=== PATIENT | female | born 1985 | race Hispanic/Latino ===

== ENCOUNTER → 2016-10-22 | Outpatient (REF) | payer OTHER | LOC: M SFHCLERA 11:26 | PROVIDERS: ATTEND Nurse Practitioner Family | DX: J02.9 Acute pharyngitis, unspecified (principal) ==

== ENCOUNTER → 2016-12-21 | Outpatient (REF) | payer OTHER ==
[2016-12-21 11:56] LABS: ALBUMIN 4.3 GM/DL (3.2-5.2); ALBUMIN/GLOBULIN RATIO 1.34 (1.00-1.93); ALKALINE PHOSPHATASE 118 U/L (45-117); ALT/SGPT 30 U/L (12-78); ANION GAP 6 MEQ/L (8-16); AST/SGOT 14 U/L (15-37); BILIRUBIN,TOTAL 0.5 MG/DL (0.2-1.0); BLOOD UREA NITROGEN 6 MG/DL (7-18); CALCIUM LEVEL 9.1 MG/DL (8.5-10.1); CARBON DIOXIDE LEVEL 30 MEQ/L (21-32); CHLORIDE LEVEL 103 MEQ/L (98-107); CREATININE FOR GFR 0.74 MG/DL (0.55-1.02); GLOMERULAR FILTRATION RATE > 60.0 (>60); GLUCOSE, FASTING 210 MG/DL (70-105); POTASSIUM SERUM 4.3 MEQ/L (3.5-5.1); SODIUM LEVEL 139 MEQ/L (136-145); TOTAL PROTEIN 7.5 GM/DL (6.4-8.2)
== END ==
LOC: M SFHCLERA 09:36
PROVIDERS: ATTEND Physician Assistant
DX: E11.65 Type 2 diabetes mellitus with hyperglycemia (principal)

== ENCOUNTER 2017-04-02 12:28 | Emergency (ER) | payer MEDICAID, OTHER ==
[~2017-04-02] VITALS: Ht 162.6 cm; Wt 89.1 kg
[2017-04-02 12:29] VITALS: BP 136/70
[2017-04-02] MEDS ORDERED: METF10004 PO (12:36)
[2017-04-02] MEDS ORDERED: ZANA4TAB PO (13:15)
[2017-04-02] MEDS ORDERED: IBUP-1022 PO (13:15)
== END 2017-04-02 14:00 | disposition home or self-care (01) ==
LOC: M ED 12:28
DX: M54.5 Low back pain (principal); X50.9XXA Other and unspecified overexertion or strenuous movements or postures, initial encounter; Y92.89 Other specified places as the place of occurrence of the external cause; Y93.89 Activity, other specified; Y99.8 Other external cause status; Z88.0 Allergy status to penicillin; Z91.09 Other allergy status, other than to drugs and biological substances; Z79.84 Long term (current) use of oral hypoglycemic drugs

== ENCOUNTER → 2017-04-04 | Outpatient (CLI) | payer MEDICAID ==
[~2017-04-04] MED LIST: IBUP-1022 PO; METF10004 PO; ZANA4TAB PO
--- NOTE | 2017-04-04 12:21 | REP ---
LUMBAR SPINE, FIVE VIEWS: HISTORY: Back pain. There is no acute fracture or subluxation. The L3-4 and L4-5 intervertebral discs are decreased in height consistent with disc degeneration. The facet joints are normal. In appearance. There is spina bifida occulta of S1. IMPRESSION: Degenerative change as described above. Signed by Abhay Landrum MD 04/04/2017 12:38 P
== END ==
LOC: M LRY 10:50
PROVIDERS: ATTEND Family Medicine
DX: M51.36 Other intervertebral disc degeneration, lumbar region (principal); Q76.0 Spina bifida occulta

== ENCOUNTER → 2018-01-21 | Outpatient (REF) | payer MEDICAID | LOC: M SFHCLERA 20:50 | DX: J02.9 Acute pharyngitis, unspecified (principal) ==

== ENCOUNTER 2018-01-23 13:23 | Emergency (ER) | payer MEDICAID ==
[2018-01-23] MEDS: dexameTHASONE 4 MG/ML 1ML VIAL (J1100) PO (14:18)
== END 2018-01-23 14:22 | disposition home or self-care (01) ==
LOC: M ED 13:23
DX: J06.9 Acute upper respiratory infection, unspecified (principal); B34.9 Viral infection, unspecified; E11.9 Type 2 diabetes mellitus without complications; Z79.84 Long term (current) use of oral hypoglycemic drugs; Z88.0 Allergy status to penicillin; Z91.048 Other nonmedicinal substance allergy status
CPT/HCPCS: J1100

== ENCOUNTER 2019-06-27 19:05 | Emergency (ER) | payer MEDICAID, OTHER ==
[~2019-06-27] VITALS: Ht 162.6 cm; Wt 81.8 kg
[~2019-06-27 19:05] MED LIST changes: +FAMO20TA PO; +HYDR1CRE93 TOP; +SUDATAB18 PO
[2019-06-27 19:47] LABS: BASO % 0.4 % (0.0-1.0); EOS % 0.5 % (0.0-3.0); HEMATOCRIT 40.5 % (36.0-47.0); HEMOGLOBIN 13.9 g/dl (12.0-15.5); LYMPH # 3.2 10^3/uL (1.5-5.0); MEAN CORPUSCULAR HEMOGLOBIN 32.4 pg (27.0-33.0); MEAN CORPUSCULAR HGB CONC 34.3 g/dl (32.0-36.5); MEAN CORPUSCULAR VOLUME 94.4 fl (80.0-96.0); MONO # 0.5 10^3/uL (0.0-0.8); MONO % 5.8 % (0.0-5.0); NEUTROPHILS # 4.6 10^3/uL (1.5-8.5); NEUTROPHILS % 55.2 % (36.0-66.0); PLATELET COUNT, AUTOMATED 303 10^3/uL (150-450); RED BLOOD COUNT 4.29 10^6/uL (4.00-5.40); WHITE BLOOD COUNT 8.3 10^3/uL (4.0-10.0)
[2019-06-27 20:03] LABS: ALBUMIN 4.2 GM/DL (3.2-5.2); ALT/SGPT 20 U/L (12-78); BILIRUBIN,DIRECT 0.1 MG/DL (0.0-0.2); BILIRUBIN,TOTAL 0.4 MG/DL (0.2-1.0); BLOOD UREA NITROGEN 13 MG/DL (7-18); CALCIUM LEVEL 9.8 MG/DL (8.5-10.1); CARBON DIOXIDE LEVEL 26 MEQ/L (21-32); CHLORIDE LEVEL 101 MEQ/L (98-107); CREATININE FOR GFR 0.98 MG/DL (0.55-1.30); GLOMERULAR FILTRATION RATE > 60.0 (>60); GLUCOSE, FASTING 332 MG/DL (70-100); LIPASE 162 U/L (73-393); POTASSIUM SERUM 3.7 MEQ/L (3.5-5.1); SODIUM LEVEL 135 MEQ/L (136-145); TOTAL PROTEIN 7.9 GM/DL (6.4-8.2)
[2019-06-27 20:17] LABS: HCG, SERUM QUALITATIVE POSITIVE (NEGATIVE)
[2019-06-27] MEDS ORDERED: NS 1,000 ML IV ONE (20:30)
--- NOTE | 2019-06-27 21:29 | REPVR ---
PROCEDURE INFORMATION: Exam: US First Trimester, Transabdominal and US , Transvaginal Exam date and time: 06/27/2019 8:39 PM Clinical history: 33 years old, female; complicated by abdominal or pelvic pain; Right lower quadrant; First trimester; Gestational age or lmp: 05/31/19; ; Additional info: Right pelvic pain, lmp 05/31/19 TECHNIQUE: Imaging protocol: Real-time transabdominal obstetrical ultrasound of the maternal pelvis and a first trimester , less than 14 weeks 0 days, with image documentation. Transvaginal imaging was used for better evaluation of the fetus and adnexa. COMPARISON: CT ABD PELVIS W/O CONTRAST 07/04/2015 9:49 AM FINDINGS: MATERNAL: Uterus: Transabdominally the uterus measures at least 7.8 x 4.4 x 5.3 cm. the endometrial stripe is not well seen Endovaginally the uterus measures 9.9 x 5.1 x 6.4 cm. The endometrial stripe measures 1.2 cm in thickness. Cervix: Unremarkable. Right adnexa: Transabdominally, the right ovary is not seen as a separate structure. Endovaginally, the right ovary measures 3 x 2.9 x 2.4 cm. A complex follicle in the right ovary measures 2.5 cm in maximum diameter and demonstrates blood flow within its periphery. Findings suggest a corpus luteum cyst. Arterial blood flow demonstrated in the right ovary on color Doppler examination. Left adnexa: Transabdominally, but left ovary is not seen as a separate structure. Endovaginally, of the left ovary measures 1.5 x 1.2 x 1.9 cm. Subcentimeter follicles are present. Arterial Blood flow demonstrated in the left ovary on color Doppler and pulsed Doppler examination. Intraperitoneal: No intraperitoneal free fluid. Maternal urinary bladder: The bladder is poorly distended for the transabdominal portion of the study. IMPRESSION: No evidence of an intrauterine . In the presence of a positive beta-hCG, differential diagnostic considerations include normal early intrauterine , ectopic or recent miscarriage. Serial beta hCG measurement and followup ultrasound should be considered Electronically signed by: Valeria Lawler On 06/27/2019 21:28:49 PM
[2019-06-27 21:42] LABS: HCG, SERUM QUANTITATIVE 113 MIU/ML
[2019-06-27] MEDS ORDERED: metFORMIN (GLUCOPHAGE) 500 MG TAB PO ONE (21:45)
[2019-06-27] MEDS ORDERED: METF500T13 PO (21:47)
[2019-06-27 22:05] VITALS: BP 133/81
== END 2019-06-27 22:06 | disposition home or self-care (01) ==
LOC: M ED 19:05
DX: O34.81 Maternal care for other abnormalities of pelvic organs, first trimester (principal); N83.201 Unspecified ovarian cyst, right side; O99.281 Endocrine, nutritional and metabolic diseases complicating pregnancy, first trimester; E86.0 Dehydration; O24.111 Pre-existing type 2 diabetes mellitus, in pregnancy, first trimester; Z79.84 Long term (current) use of oral hypoglycemic drugs; Z88.0 Allergy status to penicillin; Z91.048 Other nonmedicinal substance allergy status; Z3A.01 Less than 8 weeks gestation of pregnancy

== ENCOUNTER → 2019-06-30 | Outpatient (CLI) | payer OTHER ==
[~2019-06-30] MED LIST changes: +METF500T13 PO
== END ==
LOC: M LAB 06:27
PROVIDERS: ATTEND Physician Assistant Medical
DX: Z32.00 Encounter for pregnancy test, result unknown (principal)

== ENCOUNTER → 2019-07-07 | Outpatient (REF) | payer MEDICAID, OTHER ==
[2019-07-07 13:30] LABS: HEMOGLOBIN A1c 9.2 %
== END ==
LOC: M SFHCLERA 08:02
PROVIDERS: ATTEND Nurse Practitioner Family
DX: E11.65 Type 2 diabetes mellitus with hyperglycemia (principal)

== ENCOUNTER → 2019-08-14 | Outpatient (CLI) | payer OTHER ==
[2019-08-14 18:08] LABS: BASO % 0.2 % (0.0-1.0); EOS % 0.5 % (0.0-3.0); HEMOGLOBIN 11.7 g/dl (12.0-15.5); LYMPH # 2.7 10^3/uL (1.5-5.0); LYMPH % 32.8 % (24.0-44.0); MEAN CORPUSCULAR HGB CONC 33.4 g/dl (32.0-36.5); MEAN CORPUSCULAR VOLUME 95.6 fl (80.0-96.0); MONO # 0.5 10^3/uL (0.0-0.8); MONO % 6.4 % (0.0-5.0); NEUTROPHILS % 59.9 % (36.0-66.0); PLATELET COUNT, AUTOMATED 373 10^3/uL (150-450); RED BLOOD COUNT 3.66 10^6/uL (4.00-5.40); WHITE BLOOD COUNT 8.3 10^3/uL (4.0-10.0)
[2019-08-14 18:37] LABS: HEMOGLOBIN A1c 7.6 %
[2019-08-14 19:26] LABS: CHLAMYDIA DNA AMPLIFICATION POSITIVE (NEGATIVE); GC DNA AMPLIFICATION NEGATIVE (NEGATIVE)
[2019-08-17 14:25] LABS: HIV 1&2 SCREEN CENTAUR NEGATIVE (NEGATIVE); RUBELLA IgG QUALITATIVE IMMUNE (IMMUNE)
== END ==
LOC: M SMT 11:36
PROVIDERS: ATTEND Specialist
DX: Z36.89 Encounter for other specified antenatal screening (principal); O09.891 Supervision of other high risk pregnancies, first trimester; O24.011 Pre-existing type 1 diabetes mellitus, in pregnancy, first trimester; Z3A.00 Weeks of gestation of pregnancy not specified

== ENCOUNTER → 2019-09-18 | Outpatient (CLI) | payer MEDICAID | LOC: M WHC 14:15 | PROVIDERS: ATTEND Obstetrics & Gynecology | DX: Z53.9 Procedure and treatment not carried out, unspecified reason (principal) ==

== ENCOUNTER → 2019-09-18 | Outpatient (REF) | payer MEDICAID ==
[2019-09-21 11:57] LABS: CHLAMYDIA DNA AMPLIFICATION NEGATIVE (NEGATIVE); GC DNA AMPLIFICATION NEGATIVE (NEGATIVE)
== END ==
LOC: M LAB REF 14:15
PROVIDERS: ATTEND Obstetrics & Gynecology
DX: O24.012 Pre-existing type 1 diabetes mellitus, in pregnancy, second trimester (principal)

== ENCOUNTER → 2019-10-06 | Outpatient (CLI) | payer MEDICAID, OTHER ==
--- NOTE | 2019-10-06 19:17 | REP ---
Clinical: Anatomical evaluation. Comparison: 06/27/2019 . Findings: Examination demonstrates a single live intrauterine in variable presentation. motion is identified by technologist. Placenta is noted posterior and grade zero without evidence for placenta previa or abruption. Amniotic fluid volume is normal. Cervix measures 3.5 cm in length and appears closed. No evidence for nuchal cord. Gestational age by LMP 18 weeks 2 days with KIKE 03/06/2020 . Gestational age by current measurements 18 weeks 5 days with KIKE 03/03/2020 . FHR equals 144 beats per minute. BPD 4.3 cm 19 weeks 1 day HC 15.7 cm 18 weeks 4 days AC 14.2 cm 19 weeks 4 days FL 2.8 cm 18 weeks 4 days HL 2.8 cm 19 weeks 1 day HC/AC ratio 1.10 Estimated weight 271 grams ( 76th percentile). Anatomical assessment demonstrates normal structures including cranium, choroid plexus, cavum, cerebellum/posterior fossa, facial features, lungs, four-chamber heart/ventricular outflow tracts, diaphragm, stomach, cord insertion/three-vessel cord, kidneys/bladder, spine, and extremities. Impression: Single live intrauterine in variable presentation demonstrating appropriate interval growth. Anatomical assessment is complete and normal. No gross abnormalities are identified. Electronically Signed by Omid Ramirez MD 10/06/2019 07:08 P
== END ==
LOC: M RAD 10:11
PROVIDERS: ATTEND Obstetrics & Gynecology
DX: O24.012 Pre-existing type 1 diabetes mellitus, in pregnancy, second trimester (principal)

== ENCOUNTER → 2019-11-02 | Outpatient (REF) | payer MEDICAID, OTHER | LOC: M SFHCLERA 20:23 | PROVIDERS: ATTEND Nurse Practitioner Family | DX: R53.81 Other malaise (principal) ==

== ENCOUNTER → 2019-12-09 | Outpatient (REF) | payer OTHER, MEDICAID ==
[2019-12-09 14:21] LABS: HEMATOCRIT 35.4 % (36.0-47.0); MEAN CORPUSCULAR HEMOGLOBIN 31.3 pg (27.0-33.0); MEAN CORPUSCULAR HGB CONC 33.9 g/dl (32.0-36.5); MEAN CORPUSCULAR VOLUME 92.2 fl (80.0-96.0); PLATELET COUNT, AUTOMATED 338 10^3/uL (150-450); RED BLOOD COUNT 3.84 10^6/uL (4.00-5.40); WHITE BLOOD COUNT 9.4 10^3/uL (4.0-10.0)
== END ==
LOC: M LABDRAW1 11:19
PROVIDERS: ATTEND Specialist
DX: Z34.82 Encounter for supervision of other normal pregnancy, second trimester (principal)

== ENCOUNTER 2019-12-14 13:35 | Outpatient (CLI) | payer OTHER, MEDICAID ==
[~2019-12-14] VITALS: Ht 162.6 cm; Wt 93.6 kg
[2019-12-14 13:58] VITALS: BP 113/68
[2019-12-14] MEDS ORDERED: METF500T13 PO (14:09)
[2019-12-14] MEDS ORDERED: regular insulin SUBQ (14:09)
[2019-12-14] MEDS ORDERED: nph insulin SUBQ ×2 (14:09)
[2019-12-14 14:11] VITALS: BP 113/68
[2019-12-14] MEDS ORDERED: HumuLIN R (REGULAR) INSULIN (NovoLIN R) **100U/ML** PER UNIT SC ONE (15:30)
[2019-12-14] MEDS ORDERED: HumuLIN N INSULIN (NovoLIN N) PER UNIT SC ONE (15:30)
[2019-12-14 15:49] VITALS: BP 141/94
[2019-12-14 16:11] LABS: APPEARANCE, URINE CLEAR (CLEAR); BACTERIA, URINE AUTO NEGATIVE (NEGATIVE); BILIRUBIN, URINE AUTO NEGATIVE (NEGATIVE); BLOOD, URINE BLOOD NEGATIVE (NEGATIVE); COLOR, URINE YELLOW (YELLOW); GLUCOSE, URINE (UA) AUTO 3+ mg/dL (NEGATIVE); KETONE, URINE AUTO 2+ mg/dL (NEGATIVE); LEUKOCYTE ESTERASE, URINE AUTO NEGATIVE (NEGATIVE); MUCUS, URINE SMALL (NEGATIVE); NITRITE, URINE AUTO NEGATIVE (NEGATIVE); PROTEIN, URINE AUTO NEGATIVE (NEGATIVE); RBC, URINE AUTO 1 /HPF (0-3); SPECIFIC GRAVITY URINE AUTO 1.041 (1.002-1.035); SQUAMOUS EPITHELIAL CELL UR AU 2 /HPF (0-6); UROBILINOGEN, URINE AUTO 0.2 mg/dL (0.0-2.0); WBC, URINE AUTO 2 /HPF (0-3)
[2019-12-14 17:55] VITALS: BP 133/83
[2019-12-14 18:49] LABS: CREATININE,RANDOM URINE 96.9 MG/DL; TOTAL PROTEIN,RANDOM URINE 11.5 MG/DL (0.0-12.0)
[2019-12-14 18:53] LABS: HEMOGLOBIN 11.8 g/dl (12.0-15.5); MEAN CORPUSCULAR HEMOGLOBIN 32.4 pg (27.0-33.0); MEAN CORPUSCULAR HGB CONC 34.7 g/dl (32.0-36.5); MEAN CORPUSCULAR VOLUME 93.4 fl (80.0-96.0); PLATELET COUNT, AUTOMATED 304 10^3/uL (150-450); RED BLOOD COUNT 3.64 10^6/uL (4.00-5.40); WHITE BLOOD COUNT 10.6 10^3/uL (4.0-10.0)
[2019-12-14 19:13] LABS: ALT/SGPT 11 U/L (12-78); BILIRUBIN,TOTAL 0.2 MG/DL (0.2-1.0); CREATININE FOR GFR 0.65 MG/DL (0.55-1.30); GLOMERULAR FILTRATION RATE > 60.0 (>60); LDH LACTATE DEHYDROGENASE 139 U/L (84-246); URIC ACID 2.9 MG/DL (2.6-6.0)
[2019-12-14 19:40] VITALS: BP 133/88
--- NOTE | 2019-12-14 21:26 | IPNPDOC ---
Text Note Date of Service The patient was seen on 12/14/19. NOTE Subjective: Patient is a 34-year-old female who is a who is 28.1 weeks gestation with an KIKE of 03/06/20 who presents to L&D with complaints of cramping, pelvic pressure, and some contractions that have been occurring since Saturday. The patient initiated care in her first trimester with [facility] and her has been complicated by AMA and type II diabetes. She reports she has not taken any insulin since Saturday. she states she has been staying with her mother and left her insulin at home. She reports urinary frequency also. She reports that her cramping hasn't gotten worse and her contractions she feels haven't gotten closer together since she has been in the hospital. Current medications: regular insulin, NPH insulin, PNV Allergies: wool, PCN Past pregnancies: 1. 2003 SAB 2. 2007: at 38 weeks of a living male weighting 6 lbs 5 o with no complicat ions 3. 2008 SAB Medical history: obesity, Type II diabetes Surgical history: left eye and lumpectomy on her right breast Family history: father: diabetes, hyperlipidemia; sister: hyperlipidemia; m aternal grandmother: HTN, stroke, diabetes; Maternal grandfather: HTN and AAA; Paternal grandmother: ND and HTN Social history: single, unemployed, non smoker, denies drug use or alcohol abuse. Objective: VS and labs: see below. FHR 150, moderate variability, positive accelerations, no decelerations. Contractions: occasional. A+O x 3; Respiratory rate is regular with no use of accessory muscles; abdomen gravid and soft to palpation; SVE: FT/50/-3, anterior, soft. After 4 hours there had been no change but a scant of pink noted on glove after cervical exam. Assessment: IUP at 28.1 weeks gestation, cramping, Category I FHR for gestational age, not in labor Plan: After consulting with Dr. Casillas the plan was to give the patient her appropriate evening insulin earlier after patient was able to eat. Reviewed all labs with patient and her mother and no change is . She has an appointment this week for routine OB care. She was discharged home with her mother with labor precautions. Patient instructed and educated on the importance of taking her insulin and the effects it can have on her and the baby. Patient denies needing a refill on her medication. Reviewed acces to care, kick count, labor signs, preeclamptic symptoms, abruption symptoms and danger signs to report. VS,Fishbone, I+O VS, Fishbone, I+O Laboratory Tests 12/14/19 18:32 Item Value Date Time Creatinine 0.65 MG/DL 12/14/19 1832 Glomerular Filtration Rate > 60.0 12/14/19 1832 Uric Acid 2.9 MG/DL 12/14/19 1832 Total Bilirubin 0.2 MG/DL 12/14/19 1832 Aspartate Amino Transf (AST/SGOT) 10 U/L 12/14/19 1832 Alanine Aminotransferase (ALT/SGPT) 11 U/L L 12/14/19 1832 Lactate Dehydrogenase 139 U/L 12/14/19 1832 Item Value Date Time Urine Color YELLOW 12/14/19 1544 Urine Appearance CLEAR 12/14/19 1544 Urine pH 5.0 UNITS 12/14/19 1544 Urine Specific [place] 1.041 12/14/19 1544 Urine Protein NEGATIVE mg/dL 12/14/19 1544 Urine Glucose (Auto)(UA) 3+ mg/dL H 12/14/19 1544 Urine Ketones (Auto) 2+ mg/dL H 12/14/19 1544 Urine Blood NEGATIVE 12/14/19 1544 Urine Nitrite NEGATIVE 12/14/19 1544 Urine Bilirubin NEGATIVE 12/14/19 1544 Urine Urobilinogen 0.2 mg/dL 12/14/19 1544 Urine Leukocyte Esterase (Auto) NEGATIVE 12/14/19 1544 Urine WBC (Auto) 2 /HPF 12/14/19 1544 Urine RBC (Auto) 1 /HPF 12/14/19 1544 Urine Hyaline Casts (Auto) 0 /LPF 12/14/19 1544 Urine Bacteria (Auto) NEGATIVE 12/14/19 1544 Urine Squamous Epithelial Cells 2 /HPF 12/14/19 1544 Urine Mucus (Auto) SMALL 12/14/19 1544 Item Value Date Time Urine Random Total Protein 11.5 MG/DL 12/14/19 1544 Urine Random Creatinine 96.9 MG/DL 12/14/19 1544 Item Value Date Time Bedside Glucose (Misc Panel) 205 MG/DL H 12/14/19 1429 Bedside Glucose (Misc Panel) 228 MG/DL H 12/14/19 1840 Bedside Glucose (Misc Panel) 167 MG/DL H 12/14/19 1939 Vital Signs Date Time Temp Pulse Resp B/P (MAP) Pulse Ox O2 Delivery O2 Flow Rate FiO2 12/14/19 19:40 103 133/88 (103) 12/14/19 15:49 98.2 18 12/14/19 14:11 Room Air Vital Signs Label Value Date Time Patient Temperature 98.2 degrees F 12/14/19 1411 Temperature Source Temporal 12/14/19 1411 Pulse 114 12/14/19 1411 Respiratory Rate 18 bpm 12/14/19 1411 Blood Pressure Assessment 113/68 (83) 12/14/19 1411 Source Automatic Cuff (NIBP) Vital Signs Label Value Date Time Patient Temperature 98.2 degrees F 12/14/19 1549 Pulse 115 12/14/19 1549 Pulse 115 12/14/19 1549 Respiratory Rate 18 bpm 12/14/19 1549 Blood Pressure Assessment 141/94 (110) 12/14/19 1549 Source Automatic Cuff (NIBP) Blood Pressure Assessment 141/94 (110) 12/14/19 1549 Source Automatic Cuff (NIBP) KEV JOHNSON CNM Dec 14, 2019 21:25
== END 2019-12-14 19:50 | disposition home or self-care (01) ==
LOC: M LDO 13:35
PROVIDERS: ATTEND Advanced Practice Midwife
DX: O26.893 Other specified pregnancy related conditions, third trimester (principal); Z3A.28 28 weeks gestation of pregnancy; O24.414 Gestational diabetes mellitus in pregnancy, insulin controlled

== ENCOUNTER → 2019-12-30 | Outpatient (CLI) | payer MEDICAID, OTHER ==
[~2019-12-30] MED LIST changes: +nph insulin SUBQ; +regular insulin SUBQ
--- NOTE | 2019-12-30 11:55 | REP ---
OB ULTRASOUND: Real-time sonographic evaluation of the gravid uterus is performed. There is a single living intrauterine gestation. The estimated gestational age is 30 weeks 3 days, EDC 03/06/2020. Today's measurements indicate appropriate growth. BPD 78 mm = 31 weeks 3 days, 64th percentile HC 286 mm = 31 weeks 3 days, 64th percentile AC 263 mm = 30 weeks 3 days, 49th percentile Femur length 59 mm = 30 weeks 5 days, 53rd percentile HC/AC ratio 1.09 within normal range. Estimated weight 1614 grams, 47th percentile. Cervix is closed and measures 3.3 cm in length. heart rate 134 beats per minute. Amniotic fluid within normal limits. SUJATA 18.3, normal range 8.9-23.6. position is vertex. Placenta posterior and grade 1 with no previa or abruption.
== END ==
LOC: M WHC 10:39
PROVIDERS: ATTEND Specialist
DX: O24.013 Pre-existing type 1 diabetes mellitus, in pregnancy, third trimester (principal)

== ENCOUNTER 2020-02-03 22:06 | Outpatient (CLI) | payer OTHER ==
[~2020-02-03] VITALS: Ht 162.6 cm; Wt 102.7 kg
[~2020-02-03 22:06] MED LIST changes: -INSURSD SC; -NOVOINJ12 SC; -NOVOINJ13 SC
[2020-02-03] MEDS ORDERED: INSURSD SC (22:35)
[2020-02-03] MEDS ORDERED: NOVOINJ12 SC (22:36)
[2020-02-03] MEDS ORDERED: NOVOINJ13 SC ×2 (22:37→22:38)
--- NOTE | 2020-02-04 06:48 | IPN ---
DATE: 02/03/2020 Sheryl is a 34-year-old, 4, para 1-0-2-1 at 35-3/7 weeks gestation, estimated date of confinement (EDC) of 03/06/2020 based on last menstrual period and confirmed by first trimester ultrasound. She presents to labor and delivery today with report of contractions every 3-5 minutes all day long. She denies leakage of fluid or vaginal bleeding. The fetus has been active. Her care was initiated at [facility] in the first trimester. course complicated by uncontrolled type 2 diabetes mellitus with hyperglycemia. She has an induction scheduled 02/14/2020 and advanced maternal age. OBSTETRIC HISTORY: Spontaneous miscarriage times two. In 2007, 38 weeks, 6-pound 5-ounce male, spontaneous vaginal delivery following induction of labor for gestational hypertension. PAST MEDICAL HISTORY: History of gestational diabetes and type 2 diabetes. History of grand mal seizures. SURGERIES: Left eye surgery, lumpectomy of the right breast. FAMILY HISTORY: Myocardial infarction, hypertension, abdominal aortic aneurysm (AAA), stroke, diabetes, hyperlipidemia. SOCIAL HISTORY: The patient is . She is a nonsmoker. Denies alcohol and drug use. Denies history of any sexually transmitted infections. She denies history of abuse, physical, sexual, and emotional. ALLERGIES: PENICILLIN, wool, beestings, caterpillars. OBJECTIVE: Temperature 97.1, pulse 118, blood pressure is 119/77. She is alert and oriented times three. She does not appear uncomfortable with her contractions. heart rate is 145 with moderate variability, positive accelerations, negative decelerations. Contractions are every 5 minutes. They are mild to palpation, lasting approximately 30 seconds. Sterile vaginal exam: 1 cm dilated, 50% effaced, -3 station, posterior, moderate texture. No show with the exam. ASSESSMENT: Intrauterine at 35-3/7 weeks, heart rate category 1, not in active labor. PLAN: Discharge the patient home. I did review signs and symptoms of active labor, kick counts, and access to care. Patient has had her questions answered and is agreeable to this plan of care. She is scheduled on Saturday for a vitamin. Was instructed to keep her current appointment.
== END 2020-02-03 23:31 | disposition home or self-care (01) ==
LOC: M LDO 22:06
PROVIDERS: ATTEND Advanced Practice Midwife
DX: O26.893 Other specified pregnancy related conditions, third trimester (principal); R10.30 Lower abdominal pain, unspecified; O47.03 False labor before 37 completed weeks of gestation, third trimester; Z3A.35 35 weeks gestation of pregnancy; Z88.0 Allergy status to penicillin; Z91.048 Other nonmedicinal substance allergy status; Z91.030 Bee allergy status

== ENCOUNTER → 2020-02-03 | Outpatient (CLI) | payer OTHER ==
[~2020-02-03] MED LIST changes: +INSURSD SC; +NOVOINJ12 SC; +NOVOINJ13 SC
--- NOTE | 2020-02-04 03:32 | REP ---
Clinical: Gestational diabetes. Comparison: 12/30/2019 Findings: Examination demonstrates a single live intrauterine in cephalic presentation. motion is identified by technologist. Placenta is noted posterior and grade I without evidence for placenta previa or abruption. Amniotic fluid volume is normal. Cervix measures 3.8 cm in length and appears closed. No evidence for nuchal cord. Gestational age by LMP 35 weeks 3 days with KIKE 03/06/2020 . Gestational age by current measurements 35 weeks 1 day with KIKE 03/08/2020 . FHR equals 158 beats per minute. Amniotic fluid index: 16.7 cm Estimated weight by current biometrical measurements 1825 grams ( 60th percentile). Impression: Single live advanced gestation in cephalic presentation demonstrating appropriate interval growth. No gross abnormalities are identified.
== END ==
LOC: M WHC 13:51
PROVIDERS: ATTEND Obstetrics & Gynecology
DX: O24.113 Pre-existing type 2 diabetes mellitus, in pregnancy, third trimester (principal); Z3A.35 35 weeks gestation of pregnancy

== ENCOUNTER → 2020-02-08 | Outpatient (REF) | payer MEDICAID, OTHER ==
[~2020-02-08] MED LIST changes: +INSUN SC; +INSUR SC; +INSURSD SC; +NOVOINJ12 SC; +NOVOINJ13 SC
== END ==
LOC: M SFHCWAGY 17:09
PROVIDERS: ATTEND Obstetrics & Gynecology
DX: O24.113 Pre-existing type 2 diabetes mellitus, in pregnancy, third trimester (principal); Z36.89 Encounter for other specified antenatal screening; Z3A.00 Weeks of gestation of pregnancy not specified

== ENCOUNTER 2020-02-14 08:43 | Inpatient (IN) | payer OTHER ==
[~2020-02-14] VITALS: Ht 162.6 cm; Wt 101.8 kg
[2020-02-14] VITALS (24 sets, daily range): BP systolic 106–138; BP diastolic 62–88
[~2020-02-14 08:43] MED LIST changes: -INSUN SC; -INSUR SC
[2020-02-14] MEDS ORDERED: INSUN SC ×2 (09:04→09:06)
[2020-02-14] MEDS ORDERED: INSUR SC (09:07)
[2020-02-14 09:48] LABS: HEMATOCRIT 35.6 % (36.0-47.0); MEAN CORPUSCULAR HEMOGLOBIN 30.8 pg (27.0-33.0); MEAN CORPUSCULAR HGB CONC 33.7 g/dl (32.0-36.5); MEAN CORPUSCULAR VOLUME 91.3 fl (80.0-96.0); PLATELET COUNT, AUTOMATED 362 10^3/uL (150-450)
[2020-02-14] MEDS ORDERED: NS 1,000 ML IV SCH ×3 (09:50→16:00)
[2020-02-14] MEDS ORDERED: INSULIN HUMAN REGULAR 100 UNITS in NS 99 ML IV SCH (09:50)
[2020-02-14] MEDS ORDERED: INSULIN IV RATE CHANGE DOCUMENTATION ML/HR XX SCH (10:00)
[2020-02-14] MEDS: VANCOMYCIN HCL 1,000 MG, VIAL MATE ADAPTER 1 EACH in D5W 250 ML IV SCH ×2 (10:19→22:20)
[2020-02-14] MEDS ORDERED: OXYTOCIN DRIP 30 UNITS in IV 1 EA IV SCH (10:30)
[2020-02-14] MEDS ORDERED: D5W/0.9% SODIUM CHLORIDE 1,000 ML IV SCH (13:30)
[2020-02-14] MEDS: D5W/0.9% SODIUM CHLORIDE 1,000 ML IV SCH ×2 (14:15→19:34)
[2020-02-14] MEDS ORDERED: NS 500 ML IV ONE ×2 (20:15→21:45)
[2020-02-14] MEDS ORDERED: ACETAMINOPHEN 500 MG TAB As Ordered ONE (21:28)
[2020-02-14] MEDS ORDERED: ACETAMINOPHEN 500 MG TAB PO PRN (21:30)
[2020-02-14] MEDS ORDERED: BUTORPHANOL 2 MG/ML INJ (J0595) IV ONE (23:30)
[2020-02-14] MEDS ORDERED: PROMETHAZINE INJ 25 MG/ML VIAL (J2550) IV ONE (23:30)
[2020-02-15] VITALS (11 sets, daily range): BP systolic 103–123; BP diastolic 55–69
[2020-02-15] MEDS ORDERED: LR 1,000 ML IV SCH (01:11)
[2020-02-15] MEDS ORDERED: OXYTOCIN DRIP 30 UNITS in IV 1 EA IV SCH (01:11)
[2020-02-15] MEDS ORDERED: DIBUCAINE 1% OINTMENT 30GM TOP PRN (01:15)
[2020-02-15] MEDS ORDERED: DOCUSATE SODIUM 100MG CAPSULE PO PRN (01:15)
[2020-02-15] MEDS ORDERED: RHOGAM 300 MCG (1500 IU) INJ (J2790) IM SCH (01:15)
[2020-02-15] MEDS ORDERED: IBUPROFEN 800 MG TAB PO PRN (01:15)
[2020-02-15] MEDS ORDERED: ACETAMINOPHEN TAB 650MG DOSE (2X325MG) PO PRN (01:15)
[2020-02-15] MEDS ORDERED: ACETAMINOPHEN 500 MG TAB PO PRN (01:15)
[2020-02-15] MEDS ORDERED: ONDANSETRON 4MG/2ML VIAL IV PRN (01:15)
[2020-02-15] MEDS ORDERED: IBUPROFEN 600MG TAB PO PRN (01:15)
[2020-02-15] MEDS ORDERED: PROMETHAZINE 25 MG TAB PO PRN (01:15)
[2020-02-15] MEDS ORDERED: MEASLES,MUMPS,RUBELLA VACCINE INJ (MMR-II) (90707) SC SCH (01:15)
[2020-02-15] MEDS ORDERED: LIDOCAINE 1% MDV 20ML VIAL INFIL ONE (01:30)
[2020-02-15] MEDS: PRENATAL VITAMINS CHEWABLE TABLET PO SCH (08:03)
[2020-02-15] MEDS: metFORMIN (GLUCOPHAGE) 500MG TAB PO SCH ×2 (08:15→17:55)
[2020-02-16 06:08] VITALS: BP 124/58
[2020-02-16] MEDS: metFORMIN (GLUCOPHAGE) 500MG TAB PO SCH ×2 (07:46→17:46)
[2020-02-16] MEDS: PRENATAL VITAMINS CHEWABLE TABLET PO SCH (07:47)
[2020-02-16] MEDS ORDERED: INFLUENZA QUADRIVALENT PF VACCINE 0.5ML SYRINGE IM ONE (09:00)
[2020-02-16] MEDS ORDERED: BOOSTRIX/ADACEL VACCINE (DIPHTH/PERTUSS/ACELL/TETANUS) 0.5ML SYR IM ONE (09:00)
--- NOTE | 2020-02-16 13:51 | IPNPDOC ---
Progress Note Date of Service: February 16, 2020 Day#: 1 Progress Note SUBJECT: Patient is a 34-year-old female who is now a who presented to L&D at 37 weeks gestation due to her being a poorly controlled pre-gestational diabetic. She had an uncomplicated vaginal delivery on 02/15/20 at 0051. She reports she is ambulating and voiding without difficulty. States her pain is being managed with Motrin and Tylenol. OBJECTIVE: VITAL SIGNS: Within normal limits, afebrile. Blood sugars are in normal ranges. Alert and oriented times three. Breath sounds clear to auscultation. Heart rate: Regular rate and rhythm, no murmurs, rubs or gallops. Abdomen: Fundus firm at U-2. Soft, NTTP. Minimal lochia. ASSESSMENT: Day 1 ; poorly controlled pre-gestational diabetes, AMA PLAN: 1. Continue with supportive nursing care. 2. Anticipate discharge to home tomorrow. VS, I&O, 24H, Fishbone Vital Signs/I&O Vital Signs Date Time Temp Pulse Resp B/P (MAP) Pulse Ox O2 Delivery O2 Flow Rate FiO2 02/16/20 06:08 98.9 105 18 124/58 (80) 02/15/20 06:00 96 Room Air KEV JOHNSON CNM February 16, 2020 13:51
[2020-02-16 18:18] VITALS: BP 119/75
[2020-02-17 06:24] VITALS: BP 120/74
[2020-02-17] MEDS: PRENATAL VITAMINS CHEWABLE TABLET PO SCH (08:31)
[2020-02-17] MEDS: metFORMIN (GLUCOPHAGE) 500MG TAB PO SCH (08:31)
[2020-02-17] MEDS ORDERED: INFLUENZA QUADRIVALENT PF VACCINE 0.5ML SYRINGE IM ONE (09:00)
[2020-02-17] MEDS ORDERED: BOOSTRIX/ADACEL VACCINE (DIPHTH/PERTUSS/ACELL/TETANUS) 0.5ML SYR IM ONE (09:00)
== END 2020-02-17 13:40 | disposition home or self-care (01) | DRG 560 ==
LOC: M LDI 08:43 → M OBS 02-15 03:26
PROVIDERS: ADMIT Obstetrics & Gynecology; ATTEND Obstetrics & Gynecology
PROC: 10E0XZZ Delivery of Products of Conception, External Approach (ICD-10-PCS; principal; 2020-02-15)
PROC: 0KQM0ZZ Repair Perineum Muscle, Open Approach (ICD-10-PCS; 2020-02-15)
DX: O24.424 Gestational diabetes mellitus in childbirth, insulin controlled (principal); O99.824 Streptococcus B carrier state complicating childbirth; Z37.0 Single live birth; Z3A.37 37 weeks gestation of pregnancy; O70.1 Second degree perineal laceration during delivery

== ENCOUNTER → 2020-06-16 | Outpatient (REF) | payer MEDICAID, OTHER ==
[~2020-06-16] MED LIST changes: +FLON1SPR NARES; +GNP15SYP PO; +INSUN SC; +INSUR SC
== END ==
LOC: M SFHCWAGY 13:15
PROVIDERS: ATTEND Obstetrics & Gynecology
DX: Z12.4 Encounter for screening for malignant neoplasm of cervix (principal)

== ENCOUNTER 2020-08-01 15:57 | Emergency (ER) | payer MEDICAID, OTHER ==
[~2020-08-01] VITALS: Ht 162.6 cm; Wt 88.4 kg
[~2020-08-01 15:57] MED LIST changes: -FLON1SPR NARES; -GNP15SYP PO
[2020-08-01] MEDS ORDERED: GNP15SYP PO (17:39)
[2020-08-01] MEDS ORDERED: FLON1SPR NARES (17:39)
[2020-08-01 17:48] VITALS: BP 144/85
== END 2020-08-01 17:49 | disposition home or self-care (01) ==
LOC: M ED 15:57
DX: J06.9 Acute upper respiratory infection, unspecified (principal); B34.9 Viral infection, unspecified; H65.93 Unspecified nonsuppurative otitis media, bilateral; E11.9 Type 2 diabetes mellitus without complications; Z88.0 Allergy status to penicillin; Z91.030 Bee allergy status; Z91.09 Other allergy status, other than to drugs and biological substances; Z79.84 Long term (current) use of oral hypoglycemic drugs

== ENCOUNTER 2020-09-06 15:18 | Emergency (ER) | payer OTHER ==
[~2020-09-06] VITALS: Ht 162.6 cm; Wt 87.4 kg
[~2020-09-06 15:18] MED LIST changes: +FLON1SPR NARES; +GNP15SYP PO
--- NOTE | 2020-09-06 16:03 | REP ---
INDICATION: twist/pain/swelling COMPARISON: None. TECHNIQUE: Four views right ankle performed. FINDINGS: There is no evidence of acute fracture, dislocation, or intrinsic bone disease.The ankle mortise is anatomic. IMPRESSION: No fracture or dislocation. <Electronically signed by Coleman Dumont > 09/06/20 [id number]
[2020-09-06] MEDS ORDERED: NAPROXEN 250 MG TAB PO ONE (17:00)
[2020-09-06] MEDS ORDERED: LIDOCAINE 4% CREAM 5GM (LMX4) TOP ONE (17:00)
[2020-09-06 17:37] LABS: BASO % 0.4 % (0.0-1.0); EOS % 0.5 % (0.0-3.0); HEMATOCRIT 40.8 % (36.0-47.0); HEMOGLOBIN 13.7 g/dl (12.0-15.5); LYMPH # 3.1 10^3/uL (1.5-5.0); MEAN CORPUSCULAR HEMOGLOBIN 30.9 pg (27.0-33.0); MEAN CORPUSCULAR HGB CONC 33.6 g/dl (32.0-36.5); MEAN CORPUSCULAR VOLUME 91.9 fl (80.0-96.0); MONO # 0.5 10^3/uL (0.0-0.8); MONO % 5.3 % (0.0-5.0); NEUTROPHILS # 4.8 10^3/uL (1.5-8.5); NEUTROPHILS % 56.3 % (36.0-66.0); PLATELET COUNT, AUTOMATED 301 10^3/uL (150-450); RED BLOOD COUNT 4.44 10^6/uL (4.00-5.40); WHITE BLOOD COUNT 8.4 10^3/uL (4.0-10.0)
[2020-09-06 18:00] LABS: C REACTIVE PROTEIN QUANTITATIV 1.2 MG/DL (0.00-0.30); URIC ACID 2.8 MG/DL (2.6-6.0)
[2020-09-06 18:02] LABS: ERYTHROCYTE SEDIMENTATION RATE 19 mm/hr (0-20)
[2020-09-06] MEDS ORDERED: NAPR-837 PO (18:29)
[2020-09-06 18:40] VITALS: BP 123/79
== END 2020-09-06 18:54 | disposition home or self-care (01) ==
LOC: M ED 15:18
DX: M25.571 Pain in right ankle and joints of right foot (principal); R26.2 Difficulty in walking, not elsewhere classified; E11.9 Type 2 diabetes mellitus without complications; Z88.0 Allergy status to penicillin; Z91.030 Bee allergy status; Z91.048 Other nonmedicinal substance allergy status; Z79.84 Long term (current) use of oral hypoglycemic drugs

== ENCOUNTER 2020-10-12 12:47 | Emergency (ER) | payer OTHER ==
[~2020-10-12] VITALS: Ht 162.6 cm; Wt 87.7 kg
[~2020-10-12 12:47] MED LIST changes: +NAPR-837 PO
--- OUTSIDE RECORDS SUMMARY | 2020-10-12 12:56 | CCD ---
Author Author [facility] Organization [facility] Address Unknown Phone Unavailable Care Team Providers Care Line Staker Name Role Phone Yovanny Casillas Unavailable PROBLEMS Type Condition ICD9-CM Code [id number] Code Onset Dates Condition S tatus SNOMED Code Notes Problem Other chronic sinusitis 473.8 Active 82005037 Problem Other acne 706.1 Active 24817311 Problem Headache 784.0 Active 40646681 Problem Uncontrolled type 2 diabetes mellitus with hyperglycemia E11.65 Active 221803296 Problem Diabetes type 2, uncontrolled E11.65 Active 44 8097614 Problem Type 2 diabetes mellitus with hyperglycemia E11.65 Active 398332618051766 Problem Pre-existing type 1 diabetes mellitus, in pregna moy, second trimester O24.012 Active 909923434 Problem Diabetes in O24.919 Active 93692476 Problem Pre-existing type 2 diabetes mellitus, in pregna [facility], third trimester O24.113 Active 173375393 Problem Supervision of other normal Z34.80 Ac tive 368484358 Problem Pre-existing type 2 diabetes mellitus, in , unspecified trimester O24.119 Active 75073192 Problem Advanced maternal age in multigravida O09.529 Ac tive 467042651 Problem Pre-existing type 1 diabetes mellitus, in pregna moy, third trimester O24.013 Active 342421281 Problem Insulin long-term use Z79.4 Active 583627756 Problem Pre-existing diabetes mellit us affecting in third trimester, antepartum O24.313 Active 973050343 Problem Multigravida of advanced maternal age in third trimester O09.523 Active 750768149 ALLERGIES Allergen (clinical drug ingredient) Drug/Non Drug Allergy do cumented on EMR Reaction Allergy Type Onset Date Status Penicillin (For Allergies Use Only) Rash Drug Allerg y Active caterpillars Unknown Non Drug Allergy 08/26/2019 Active Bee sting Unknown Non Drug Allergy Active wool Rash Non Drug Allergy Active ENCOUNTERS from 1984 to 2020-07-21 Encounter Location Date Provider Diagnosis [facility] [address] [place] [phone] Mar, Yovanny Casillas exam Z39. 2 IMMUNIZATIONS Vaccine Route Administration Date Status Influenza (6mo & up) Fluzone Unknown December 23, 2015 Ref used Influenza (6mo & up) Fluzone Unknown Sep 07, 2014 Ref used SOCIAL HISTORY Tobacco Use: Social History Observation Description Date Details (start date - stop date) Never Smoker Sex Assigned At : Social History Observation Description Sex Assigned At Unknown Language: Question Answer Notes Languages spoken: Macedonian Alcohol Screening: Question Answer Notes Did you have a drink containing alcohol in the past year? No Points 0 Interpretation Negative Tobacco Use: Question Answer Notes Are you a: never smoker REASON FOR REFERRAL No Information VITAL SIGNS Weight 201.0 lbs Mar, Height 64.5 in Mar, BMI 33.969 kg/m2 Mar, Blood pressure systolic 130 mm Hg Mar, Blood pressure diastolic 80 mm Hg Mar, MEDICATIONS Medication SIG (Take, Route, Frequency, Duration) Start Date En d Date Status Metformin HCl 500 MG 1 tab(s) Orally twice daily for diabetes 27 r, 2012 Active Blood Glucose Test - as directed In Vitro Daily for 90 day(s) 2018 Active OneTouch Verio w/Device as directed Daily for 90 day(s) Jun, 9 Active Novolin N 100 UNIT/ML 36 units every morning, 24 units every night Subcutaneous Not-Taking Easy Touch Lancets 32G - as directed subcutaneously twice da nelida for 90 day(s) Jun, Active Novolin R 100 UNIT/ML 26 units every morning, 24 units every nig ht Injection Not-Taking PROCEDURES No Information RESULTS No Results REASON FOR VISIT 8WK PP MEDICAL (GENERAL) HISTORY Type Description Date Medical History H/o gestational DM Medical History Type II DM Medical History DM (diabetes mellitus), type 2, uncontro lled Medical History Hx of grand mal seizures Surgical History Left eye surgery 4 y/o Surgical History Lumpectomy, right breast (benign) 17 y/o Hospitalization History Childbirth 2008 Goals Section No Information Health Concerns No Information MEDICAL EQUIPMENT No Information MENTAL STATUS No Information FUNCTIONAL STATUS No Information ASSESSMENTS Encounter Date Diagnosis Notes Mar, exam (ICD-10 - Z39.2) PLAN OF TREATMENT Next Appt Details 4 Weeks Reason:annual Follow Up:4 Weeksannual Insurance Providers Payer Name Payer Address Payer Phone Insured Name Patient Relati onship to Insured Coverage Start Date Coverage End Date MEDICA[employer] [address] [facility] [id number] [place] self
--- OUTSIDE RECORDS SUMMARY | 2020-10-12 12:56 | CCD ---
Author Author [facility] Organization [facility] Address Unknown Phone Unavailable Support Name Relationship Address Phone [employer] [place] [address] [employer] Next Of Kin [address] [place] [address] [place] Next Of Kin [address] [place] [address] UE Next Of Kin Unknown Unavailable [place] [address] NATHALIE YOUSIF [facility] [address] [facility] [place] [address] Unavailable Re-disclosure Warning The records that you are about to access may contain information from federally-assisted alcohol or drug abuse programs. If such information is present, then the following federally mandated warning applies: This information has been disclosed to you from records protected by federal confidentiality rules (42 CFR part 2). The federal rules prohibit you from making any further disclosure of this information unless further disclosure is expressly permitted by the written consent of the person to whom it pertains or as otherwise permitted by 42 CFR part 2. A general authorization for the release of medical or other information is NOT sufficient for this purpose. The Federal rules restrict any use of the information to criminally investigate or prosecute any alcohol or drug abuse patient.The records that you are about to access may contain highly sensitive health information, the redisclosure of which is protected by Article 27-F of the [place] State Public Health law. If you continue you may have access to information: Regarding HIV / AIDS; Provided by facilities licensed or operated by the [facility] Office of Mental Health; or Provided by the [facility] Office for People With Developmental Disabilities. If such information is present, then the following [facility] mandated warning applies: This information has been disclosed to you from confidential records which are protected by state law. State law prohibits you from making any further disclosure of this information without the specific written consent of the person to whom it pertains, or as otherwise permitted by law. Any unauthorized further disclosure in violation of state law may result in a fine or fdc sentence or both. A general authorization for the release of medical or other information is NOT sufficient authorization for further disc losure. Allergies and Adverse Reactions Type Description Substance Reaction Status Data Source(s ) Drug allergy Penicillin (For Allergies Use Only) Drug allergy Rash Active eCW1 ([facility]) wool wool wool Rash Active [facility] Bee sting Bee sting Bee sting Unknown Active eCW1 [facility]) caterpillars caterpillars caterpillars Unknown Active eCW1 ([facility]) Bee sting Bee sting Bee sting Unknown Active eCW1 ([facility]) wool wool wool Rash Active eCW1 ([facility]) caterpillars caterpillars caterpillars Unknown Active eCW1 ([facility]) wool wool wool Rash Active eCW1 ([facility]) Bee sting Bee sting Bee sting Unknown Active eCW1 ([facility]) caterpillars caterpillars caterpillars Unknown Active eCW1 ([facility]) wool wool wool Rash Active eCW1 ([facility]) Bee sting Bee sting Bee sting Unknown Active eCW1 ([facility]) caterpillars caterpillars caterpillars Unknown Active eCW1 ([facility]) wool wool wool Rash Active eCW1 ([facility]) Bee sting Bee sting Bee sting Unknown Active eCW1 [facility]) caterpillars caterpillars caterpillars Unknown Active eCW1 ([facility]) wool wool wool Rash Active eCW1 ([facility]) Bee sting Bee sting Bee sting Unknown Active eCW1 ([facility]) caterpillars caterpillars caterpillars Unknown Active eCW1 ([facility]) wool wool wool Rash Active eCW1 ([facility]) Bee sting Bee sting Bee sting Unknown Active eCW1 ([facility]) caterpillars caterpillars caterpillars Unknown Active eCW1 ([facility]) wool wool wool Rash Active eCW1 ([facility]) Bee sting Bee sting Bee sting Unknown Active eCW1 ([facility]) caterpillars caterpillars caterpillars Unknown Active eCW1 ([facility]) wool wool wool Rash Active eCW1 ([facility]) Bee sting Bee sting Bee sting Unknown Active eCW1 ([facility]) caterpillars caterpillars caterpillars Unknown Active eCW1 ([facility]) wool wool wool Rash Active eCW1 ([facility]) Bee sting Bee sting Bee sting Unknown Active eCW1 ([facility]) caterpillars caterpillars caterpillars Unknown Active eCW1 ([facility]) wool wool wool Rash Active eCW1 ([facility]) Bee sting Bee sting Bee sting Unknown Active eCW1 ([facility]) caterpillars caterpillars caterpillars Unknown Active eCW1 ([facility]) wool wool wool Rash Active eCW1 ([facility]) Bee sting Bee sting Bee sting Unknown Active eCW1 ([facility]) caterpillars caterpillars caterpillars Unknown Active eCW1 ([facility]) Propensity to adverse reactions caterpillars Propensity to ad verse reactions Unknown Active eCW1 ([facility]) Propensity to adverse reactions caterpillars Propensity to ad verse reactions Unknown Active eCW1 ([facility]) wool wool wool Rash Active eCW1 ([facility]) Bee sting Bee sting Bee sting Unknown Active eCW1 ([facility]) caterpillars caterpillars caterpillars Unknown Active eCW1 ([facility]) Encounters Encounter Providers Location Date Indications Data Source(s ) ( PP) [facility] [id number] 04/15/2020 12:00:00 AM EDT eCW1 ([facility]) Outpatient 02/14/2020 07:19:00 AM EDT [facility] ( [facility]) Teddy Complicated OB for MD Only [id number] 02/08/2020 12:00:00 AM EDT eCW1 ([facility]) [facility] [id number] 02/01/2020 12:00:00 AM EDT eCW1 ([facility]) [facility] [id number] 01/27/2020 12:00:00 AM EDT eCW1 ([facility]) [facility] [address] [place] [address] 01/20/2020 12:00:00 AM EDT eCW1 ([facility]) Outpatient 01/13/2020 05:13:00 AM EDT [facility] [address] [place] [address] 01/13/2020 12:00:00 AM EDT eCW1 ([facility]) [facility] [address] [place] [address] 01/05/2020 12:00:00 AM EDT eCW1 ([facility]) [facility] [address] [place] [address] 12/29/2019 12:00:00 AM EDT eCW1 ([facility]) [facility] [address] [place] [address] 12/23/2019 12:00:00 AM EDT eCW1 ([facility]) [facility] [address] [place] [address] 12/15/2019 12:00:00 AM EDT eCW1 ([facility]) [facility] [address] [place] [address] 12/10/2019 12:00:00 AM EDT eCW1 ([facility]) Outpatient 12/04/2019 01:33:00 PM EST [facility] Outpatient 12/04/2019 01:32:00 PM EST [facility] [id number] 11/24/2019 12:00:00 AM EST eCW1 ([facility]) [facility] [address] [place] [address] 11/09/2019 12:00:00 AM EST eCW1 ([facility]) [facility] [address] [place] [address] 11/04/2019 12:00:00 AM EST eCW1 ([facility]) [facility] [address] [place] [address] 11/03/2019 12:00:00 AM EST eCW1 ([facility]) [facility] [address] [place] [address] 11/02/2019 12:00:00 AM EST eCW1 ([facility]) Outpatient 10/22/2019 10:15:00 PM EST [facility] [id number] 10/12/2019 12:00:00 AM EST eCW1 ([facility]) Outpatient 10/08/2019 12:24:00 PM EST [facility] [id number] 09/25/2019 12:00:00 AM EST eCW1 ([facility]) [facility] [address] [place] [address] 09/18/2019 12:00:00 AM EST eCW1 ([facility]) [facility] [address] [place] [address] 08/26/2019 12:00:00 AM EST eCW1 ([facility]) [facility] [address] [place] [address] 08/26/2019 12:00:00 AM EST eCW1 ([facility]) [facility] [address] [place] [address] 08/26/2019 12:00:00 AM EST eCW1 ([facility]) [facility] [address] [place] [address] 08/24/2019 12:00:00 AM EST eCW1 ([facility]) Medications Medication Brand Name Start Date Product Form Dose Route Admi nistrative Instructions Pharmacy Instructions Status Indications Reaction Description Data Source(s) Promethazine Hydrochloride 25 MG Oral Tablet Promethaz ine HCl 25 MG Promethazine HCl 25 MG 09/18/2019 12:00:00 AM EST active 1 tablet as needed eCW1 ([facility]) Promethazine Hydrochloride 25 MG Oral Tablet Promethaz ine HCl 25 MG Promethazine HCl 25 MG 09/18/2019 12:00:00 AM EST active 1 tablet as needed eCW1 ([facility]) Insurance Providers Payer name Policy type / Coverage type Policy ID Covered green party ID Covered green party's relationship to garcia Policy Garcia Plan Information [facility] [employer] [employer] [id number] SP [id number] [place] [id number] SP [id number] [facility] [employer] [employer] [facility] [employer] [id number] SP [id number] [facility] O [id number] S [id number] MEDICAID [id number] SP [id number] SELF PAY O UNAVAILABLE S UNAVAILA BLE MEDICAID M [id number] S [id number] ANSI-Medicaid [id number] SELF PAY ONLY [id number] SP [id number] [facility] [place] XIX -O [id number] 18 [id number] SELF PAY UNAVAILABLE UNAVAILA BLE [facility] [id number] SP [id number] Problems, Conditions, and Diagnoses Code Display Name Description Problem Type Effective Dates Data Source(s) O24.119 Diabetes mellitus in mother complicating , childbirth AND/OR puerperium Pre-existing type 2 diabetes mellitus, i n , unspecified trimester Problem 02/01/2020 12:00:00 AM EDT eCW1 ([facility]) O24.119 Diabetes mellitus in mother complicating , childbirth AND/OR puerperium Pre-existing type 2 diabetes mellitus, i n , unspecified trimester Problem 02/01/2020 12:00:00 AM EDT eCW1 ([facility]) O24.113 Pre-existing type 2 diabetes mellitus in Pre-existing type 2 diabetes mellitus, in , third trimester Problem 01/12 12:00:00 AM EDT eCW1 ([facility]) O24.113 Pre-existing type 2 diabetes mellitus in Pre-existing type 2 diabetes mellitus, in , third trimester Problem 01/12 12:00:00 AM EDT eCW1 ([facility]) O09.523 [id number] Multigravida of advanced materna l age in third trimester Problem 01/05/2020 12:00:00 AM EDT eCW1 ([facility]) O24.313 [id number] Pre-existing diabete s mellitus affecting in third trimester, antepartum Problem 01/05/2020 12:00:00 AM EDT eCW1 ([facility]) Z79.4 [id number] Insulin long-term use Problem 01/05/2020 12: 00:00 AM EDT eCW1 ([facility]) O09.523 [id number] Multigravida of advanced materna l age in third trimester Problem 01/05/2020 12:00:00 AM EDT eCW1 ([facility]) O24.313 [id number] Pre-existing diabete s mellitus affecting in third trimester, antepartum Problem 01/05/2020 12:00:00 AM EDT eCW1 ([facility]) Z79.4 [id number] Insulin long-term use Problem 01/05/2020 12: 00:00 AM EDT eCW1 ([facility]) O24.013 Pre-existing type 1 diabetes mellitus in Pre-existing type 1 diabetes mellitus, in , third trimester Problem 12/22 12:00:00 AM EDT eCW1 ([facility]) O24.013 Pre-existing type 1 diabetes mellitus in Pre-existing type 1 diabetes mellitus, in , third trimester Problem 12/22 12:00:00 AM EDT eCW1 ([facility]) O24.919 Diabetes mellitus in mother complicating , childbirth AND/OR puerperium Diabetes in Problem 10/12/2019 12:00:00 AM EST eCW1 ([facility]) O24.919 Diabetes mellitus in mother complicating , childbirth AND/OR puerperium Diabetes in Problem 10/12/2019 12:00:00 AM EST eCW1 ([facility]) O24.012 Pre-existing type 1 diabetes mellitus in Pre-existing type 1 diabetes mellitus, in , second trimester Problem 08/31 12:00:00 AM EST eCW1 ([facility]) O24.012 Pre-existing type 1 diabetes mellitus in Pre-existing type 1 diabetes mellitus, in , second trimester Problem 08/31 12:00:00 AM EST eCW1 ([facility]) O09.529 [id number] Advanced maternal age in multigravida Pro blem 08/26/2019 12:00:00 AM EST eCW1 ([facility]) E11.65 Hyperglycemia due to type 2 diabetes michele litus Type 2 diabetes mellitus with hyperglycemia Problem 08/26/2019 12:00:00 AM EST eCW1 ([facility]) O09.529 [id number] Advanced maternal age in multigravida Pro blem 08/26/2019 12:00:00 AM EST eCW1 ([facility]) Z34.80 care Supervision of other normal P roblem 08/24/2019 12:00:00 AM EST eCW1 ([facility]) Z34.80 care Supervision of other normal P roblem 08/24/2019 12:00:00 AM EST eCW1 ([facility]) Surgeries/Procedures Procedure Description Date Indications Data Source(s) NONSTRESS TEST 02/08/2020 12:00:00 AM EDT eCW1 ([facility]) NONSTRESS TEST 02/01/2020 12:00:00 AM EDT eCW1 ([facility]) SUBSEQUENT CARE VISIT 02/01/2020 12:00:00 AM EDT eCW1 ([facility]) US UTERUS LIMITED 1/> FETUSES 01/27/2020 12:0 0:00 AM EDT eCW1 ([facility]) OB Visit 01/20/2020 12:00:00 AM EDT e CW1 ([facility]) STREP A ASSAY W/OPTIC 11/02/2019 12:00:00 AM EST eCW1 ([facility]) Influenza A+B 11/02/2019 12:00:00 AM EST eCW1 ([facility]) Results ID Date Data Source GATS (NEGATIVE STREP SCREEN) 11/02/2019 12:00:00 AM EST eCW1 ([facility]) Name Value Range Interpretation Code Description Data Dennise rce(s) Supporting Document(s) eCW1 ([facility]) GATS (NEGATIVE STREP SCREEN) FULL REPORT IN LAB NOTES (eCW and [facility]). GATS CULTURE (NEG STREP SCR) W1 ([facility]) ID Date Data Source CHLAMYDIA & GC DNA AMPLIFICAT 09/18/2019 12:00:00 AM EST eCW 1 ([facility]) Name Value Range Interpretation Code Description Data Dennise rce(s) Supporting Document(s) Chlamydia trachomatis rRNA [Presence] in Unspecified specimen by Probe and target amplification method NEGATIVE NEGATIVE CHLAMYDIA DNA AMPLIFICATION eCW1 ([facility]) Procedure Social History Code Duration Value Status Description Data Source(s ) Smoking 04/15/2020 12:00:00 AM EDT Never Smoker completed Never S moker eCW1 ([facility]) Smoking 02/08/2020 12:00:00 AM EDT Never Smoker completed Never S moker eCW1 ([facility]) Vital Signs ID Date Data Source UNK Name Value Range Interpretation Code Description Data Source(s) Diastolic blood pressure 80 mm[Hg] 80 mm[Hg] eCW1 ([facility]) Systolic blood pressure 130 mm[Hg] 130 mm[Hg] e CW1 ([facility]) Body mass index (BMI) [Ratio] 33.969 kg/m2 33.9 69 kg/m2 [facility] ([facility]) Body height 64.5 [in_i] 64.5 [in_i] W1 ([facility]) Body weight 201.0 [lb_av] 201.0 [lb_av] eCW1 ([facility]) Diastolic blood pressure 64 mm[Hg] 64 mm[Hg] eCW1 ([facility]) Systolic blood pressure 116 mm[Hg] 116 mm[Hg] e CW1 ([facility]) Body mass index (BMI) [Ratio] 38.295 kg/m2 38.2 95 kg/m2 [facility] ([facility]) Body height 64.5 [in_i] 64.5 [in_i] eCW1 ([facility]) Body weight 226.6 [lb_av] 226.6 [lb_av] eCW1 ([facility]) Diastolic blood pressure 70 mm[Hg] 70 mm[Hg] eCW1 ([facility]) Systolic blood pressure 122 mm[Hg] 122 mm[Hg] e CW1 ([facility]) Body mass index (BMI) [Ratio] 37.416 kg/m2 37.4 16 kg/m2 W1 ([facility]) Body height 64.5 [in_us] 64.5 [in_us] eCW1 ([facility]) Body weight Measured 221.4 [lb_av] 221.4 [lb_av ] eCW1 ([facility]) Diastolic blood pressure 76 mm[Hg] 76 mm[Hg] eCW1 ([facility]) Systolic blood pressure 138 mm[Hg] 138 mm[Hg] e CW1 ([facility]) Body mass index (BMI) [Ratio] 36.571 kg/m2 36.5 71 kg/m2 eCW1 ([facility]) Body height 64.5 [in_us] 64.5 [in_us] eCW1 ([facility]) Body weight Measured 216.4 [lb_av] 216.4 [lb_av ] eCW1 ([facility]) Diastolic blood pressure 76 mm[Hg] 76 mm[Hg] eCW1 ([facility]) Systolic blood pressure 122 mm[Hg] 122 mm[Hg] e CW1 ([facility]) Body mass index (BMI) [Ratio] 36.74 kg/m2 36.74 kg/m2 eCW1 ([facility]) Body height 64.5 [in_us] 64.5 [in_us] eCW1 ([facility]) Body weight Measured 217.4 [lb_av] 217.4 [lb_av ] eCW1 ([facility]) Diastolic blood pressure 70 mm[Hg] 70 mm[Hg] eCW1 ([facility]) Systolic blood pressure 116 mm[Hg] 116 mm[Hg] e CW1 ([facility]) Body mass index (BMI) [Ratio] 35.963 kg/m2 35.9 63 kg/m2 eCW1 ([facility]) Body height 64.5 [in_us] 64.5 [in_us] eCW1 ([facility]) Body weight Measured 212.8 [lb_av] 212.8 [lb_av ] eCW1 ([facility]) Diastolic blood pressure 62 mm[Hg] 62 mm[Hg] eCW1 ([facility]) Systolic blood pressure 110 mm[Hg] 110 mm[Hg] e CW1 ([facility]) Body mass index (BMI) [Ratio] 35.895 kg/m2 35.8 95 kg/m2 eCW1 ([facility]) Body height 64.5 [in_us] 64.5 [in_us] eCW1 ([facility]) Body weight Measured 212.4 [lb_av] 212.4 [lb_av ] eCW1 ([facility]) Diastolic blood pressure 76 mm[Hg] 76 mm[Hg] eCW1 ([facility]) Systolic blood pressure 116 mm[Hg] 116 mm[Hg] e CW1 ([facility]) Body mass index (BMI) [Ratio] 35.693 kg/m2 35.6 93 kg/m2 eCW1 ([facility]) Body height 64.5 [in_us] 64.5 [in_us] eCW1 ([facility]) Body weight Measured 211.2 [lb_av] 211.2 [lb_av ] eCW1 ([facility]) Diastolic blood pressure 74 mm[Hg] 74 mm[Hg] eCW1 ([facility]) Systolic blood pressure 116 mm[Hg] 116 mm[Hg] e CW1 ([facility]) Body mass index (BMI) [Ratio] 35.794 kg/m2 35.7 94 kg/m2 W1 ([facility]) Body height 64.5 [in_us] 64.5 [in_us] eCW1 ([facility]) Body weight Measured 211.8 [lb_av] 211.8 [lb_av ] eCW1 ([facility]) Diastolic blood pressure 74 mm[Hg] 74 mm[Hg] eCW1 ([facility]) Systolic blood pressure 112 mm[Hg] 112 mm[Hg] e CW1 ([facility]) Body mass index (BMI) [Ratio] 34.679 kg/m2 34.6 79 kg/m2 W1 ([facility]) Body height 64.5 [in_us] 64.5 [in_us] eCW1 ([facility]) Body weight Measured 205.2 [lb_av] 205.2 [lb_av ] eCW1 ([facility]) Diastolic blood pressure 74 mm[Hg] 74 mm[Hg] eCW1 ([facility]) Systolic blood pressure 116 mm[Hg] 116 mm[Hg] e CW1 ([facility]) Body mass index (BMI) [Ratio] 34.543 kg/m2 34.5 43 kg/m2 eCW1 ([facility]) Body height 64.5 [in_us] 64.5 [in_us] eCW1 ([facility]) Body weight Measured 204.4 [lb_av] 204.4 [lb_av ] eCW1 ([facility]) Diastolic blood pressure 68 mm[Hg] 68 mm[Hg] eCW1 ([facility]) Systolic blood pressure 109 mm[Hg] 109 mm[Hg] e CW1 ([facility]) Body temperature 99.5 [degF] 99.5 [degF] eCW1 ( [facility]) Respiratory rate 18 /min 18 /min eCW1 ([facility]) Heart rate 102 /min 102 /min eCW1 ([facility] Body mass index (BMI) [Ratio] 34.95 kg/m2 34.95 kg/m2 eCW1 ([facility]) Body height 64.5 [in_us] 64.5 [in_us] eCW1 ([facility]) Body weight Measured 206.8 [lb_av] 206.8 [lb_av ] eCW1 ([facility]) Diastolic blood pressure 74 mm[Hg] 74 mm[Hg] eCW1 ([facility]) Systolic blood pressure 112 mm[Hg] 112 mm[Hg] e CW1 ([facility]) Body mass index (BMI) [Ratio] 34.138 kg/m2 34.1 38 kg/m2 W1 ([facility]) Body height 64.5 [in_us] 64.5 [in_us] eCW1 ([facility]) Body weight Measured 202 [lb_av] 202 [lb_av] eC W1 ([facility]) Diastolic blood pressure 76 mm[Hg] 76 mm[Hg] eCW1 ([facility]) Systolic blood pressure 122 mm[Hg] 122 mm[Hg] e CW1 ([facility]) Body mass index (BMI) [Ratio] 33.327 kg/m2 33.3 27 kg/m2 eCW1 ([facility]) Body height 64.5 [in_us] 64.5 [in_us] eCW1 ([facility]) Body weight Measured 197.2 [lb_av] 197.2 [lb_av ] W1 ([facility]) Diastolic blood pressure 72 mm[Hg] 72 mm[Hg] eCW1 ([facility]) Systolic blood pressure 118 mm[Hg] 118 mm[Hg] e CW1 ([facility]) Body mass index (BMI) [Ratio] 32.617 kg/m2 32.6 17 kg/m2 W1 ([facility]) Body height 64.5 [in_us] 64.5 [in_us] eCW1 ([facility]) Body weight Measured 193 [lb_av] 193 [lb_av] eC W1 ([facility]) Patient Treatment Plan of Care Planned Activity Planned Date Details Description Data Source (s) Promethazine Hydrochloride 25 MG Oral Tablet 09/18/2019 12:00:00 AM EST eCW1 ([facility])
--- OUTSIDE RECORDS SUMMARY | 2020-10-12 14:29 | CCD ---
Author Author [facility] Organization [facility] Address Unknown Phone Unavailable Support Name Relationship Address Phone [employer] [place] [address] [employer] Next Of Kin [address] [place] [address] [place] Next Of Kin [address] [place] [address] UE Next Of Kin Unknown Unavailable NATHAL[place] [address] NATHALIE YOUSIF [facility] [address] [facility] [place] [address] Unavailable Re-disclosure Warning The records that you [...] is protected by Article 27-F of the [place] State Public Health law. If you continue you may have access to information: Regarding HIV / AIDS; Provided by facilities licensed or operated by the [facility] of Mental Health; or Provided by the [facility] for People With Developmental Disabilities. If such information is present, then the following [facility] mandated warning applies: This information has been [...] law may result in a fine or care home sentence or both. A general authorization for the release of medical or other information is NOT sufficient authorization for further disc losure. Allergies and Adverse Reactions Type Description Substance Reaction Status Data Source(s ) Drug allergy Penicillin (For Allergies Use Only) Drug allergy Rash Active eCW1 ([facility]) wool wool wool Rash Active eCW1 ([facility]) Bee sting Bee sting Bee sting Unknown Active eCW1 ([facility]) caterpillars caterpillars caterpillars Unknown Active eCW1 ([facility]) Bee sting Bee sting Bee sting Unknown Active eCW1 ([facility]) wool wool wool Rash Active eCW1 ([facility]) caterpillars caterpillars caterpillars Unknown Active eCW1 ([facility]) wool wool wool Rash Active eCW1 ([facility]) Bee sting Bee sting Bee sting Unknown Active eCW1 ([facility]) caterpillars caterpillars caterpillars Unknown Active eCW1 ([facility]) wool wool wool Rash Active eCW1 ([facility]) Bee sting Bee sting Bee sting Unknown Active eCW1 ([facility]) caterpillars caterpillars caterpillars Unknown Active eCW1 ([facility]) wool wool wool Rash Active eCW1 ([facility]) Bee sting Bee sting Bee sting Unknown Active eCW1 ([facility]) caterpillars caterpillars caterpillars Unknown Active eCW1 ([facility]) wool wool wool Rash Active eCW1 ([facility]) Bee sting Bee sting Bee sting Unknown Active eCW1 ([facility]) caterpillars caterpillars caterpillars Unknown Active eCW1 ([facility]) wool wool wool Rash Active eCW1 ([facility]) Bee sting Bee sting Bee sting Unknown Active eCW1 ([facility]) caterpillars caterpillars caterpillars Unknown Active eCW1 ([facility]) wool wool wool Rash Active eCW1 ([facility]) Bee sting Bee sting Bee sting Unknown Active eCW1 ([facility]) caterpillars caterpillars caterpillars Unknown Active eCW1 ([facility]) wool wool wool Rash Active eCW1 ([facility]) Bee sting Bee sting Bee sting Unknown Active eCW1 ([facility]) caterpillars caterpillars caterpillars Unknown Active eCW1 ([facility]) wool wool wool Rash Active eCW1 ([facility]) Bee sting Bee sting Bee sting Unknown Active eCW1 ([facility]) caterpillars caterpillars caterpillars Unknown Active eCW1 ([facility]) wool wool wool Rash Active eCW1 ([facility]) Bee sting Bee sting Bee sting Unknown Active eCW1 ([facility]) caterpillars caterpillars caterpillars Unknown Active eCW1 ([facility]) wool wool wool Rash Active eCW1 ([facility]) Bee sting Bee sting Bee sting Unknown Active eCW1 ([facility]) caterpillars caterpillars caterpillars Unknown Active eCW1 ([facility]) Propensity to adverse reactions caterpillars Propensity to ad verse reactions Unknown Active eCW1 ([facility]) Propensity to adverse reactions caterpillars Propensity to ad verse reactions Unknown Active eCW1 ([facility]) wool wool wool Rash Active eCW1 ([facility]) Bee sting Bee sting Bee sting Unknown Active eCW1 ([facility]) caterpillars caterpillars caterpillars Unknown Active eCW1 ([facility]) Encounters Encounter Providers Location Date Indications Data Source(s ) ( PP) [facility] [id number] 04/15/2020 12:00:00 AM EDT eCW1 ([facility]) Outpatient 02/14/2020 07:19:00 AM EDT [facility] ( [facility]) Teddy Complicated OB for MD Only [id number] 02/08/2020 12:00:00 AM EDT eCW1 ([facility]) [facility] [id number] 02/01/2020 12:00:00 AM EDT eCW1 ([facility]) [facility] [id number] 01/27/2020 12:00:00 AM EDT eCW1 ([facility]) [facility] [address] [place] [address] 01/20/2020 12:00:00 AM EDT eCW1 ([facility]) Outpatient 01/13/2020 05:13:00 AM EDT [facility] [address] [place] [address] 01/13/2020 12:00:00 AM EDT eCW1 ([facility]) [facility] [address] [place] [address] 01/05/2020 12:00:00 AM EDT eCW1 ([facility]) [facility] [address] [place] [address] 12/29/2019 12:00:00 AM EDT eCW1 ([facility]) [facility] [address] [place] [address] 12/23/2019 12:00:00 AM EDT eCW1 ([facility]) [facility] [address] [place] [address] 12/15/2019 12:00:00 AM EDT eCW1 ([facility]) [facility] [address] [place] [address] 12/10/2019 12:00:00 AM EDT eCW1 ([facility]) Outpatient 12/04/2019 01:33:00 PM EST [facility] Outpatient 12/04/2019 01:32:00 PM EST [facility] [id number] 11/24/2019 12:00:00 AM EST eCW1 ([facility]) [facility] [address] [place] [address] 11/09/2019 12:00:00 AM EST eCW1 ([facility]) [facility] [address] [place] [address] 11/04/2019 12:00:00 AM EST eCW1 ([facility]) [facility] [address] [place] [address] 11/03/2019 12:00:00 AM EST eCW1 ([facility]) [facility] [address] [place] [address] 11/02/2019 12:00:00 AM EST eCW1 ([facility]) Outpatient 10/22/2019 10:15:00 PM EST [facility] [id number] 10/12/2019 12:00:00 AM EST eCW1 ([facility]) Outpatient 10/08/2019 12:24:00 PM EST [facility] [id number] 09/25/2019 12:00:00 AM EST eCW1 ([facility]) [facility] [address] [place] [address] 09/18/2019 12:00:00 AM EST eCW1 ([facility]) [facility] [address] [place] [address] 08/26/2019 12:00:00 AM EST eCW1 ([facility]) [facility] [address] [place] [address] 08/26/2019 12:00:00 AM EST eCW1 ([facility]) [facility] [address] [place] [address] 08/26/2019 12:00:00 AM EST eCW1 ([facility]) [facility] [address] [place] [address] 08/24/2019 12:00:00 AM EST eCW1 ([facility]) Medications Medication Brand Name Start Date Product Form Dose Route Admi nistrative Instructions Pharmacy Instructions Status Indications Reaction Description Data Source(s) Promethazine Hydrochloride 25 MG Oral Tablet Promethaz ine HCl 25 MG Promethazine HCl 25 MG 09/18/2019 12:00:00 AM EST active 1 tablet as needed eCW1 ([facility]) Promethazine Hydrochloride 25 MG Oral Tablet Promethaz ine HCl 25 MG Promethazine HCl 25 MG 09/18/2019 12:00:00 AM EST active 1 tablet as needed eCW1 ([facility]) Insurance Providers Payer name Policy type / Coverage type Policy ID Covered constitution party ID Covered constitution party's relationship to garcia Policy Garcia Plan Information [facility] [employer] [facility] [id number] SP [id number] EMEDNY [id number] SP [id number] [facility] [id number] SP [id number] [facility] O [id number] S [id number] MEDICAID [id number] SP [id number] SELF PAY O UNAVAILABLE S UNAVAILA BLE MEDICAID M [id number] S [id number] ANSI-Medicaid [id number] SELF PAY ONLY [id number] SP [id number] [facility] -O [id number] SELF PAY UNAVAILABLE UNAVAILA BLE [facility] [id number] SP [id number] Problems, Conditions, and Diagnoses Code Display Name Description Problem Type Effective Dates Data Source(s) O24.119 Diabetes mellitus in mother complicating , childbirth AND/OR puerperium Pre-existing type 2 diabetes mellitus, i n , unspecified trimester Problem 02/01/2020 12:00:00 AM EDT eCW1 ([facility]) O24.119 Diabetes mellitus in mother complicating , childbirth AND/OR puerperium Pre-existing type 2 diabetes mellitus, i n , unspecified trimester Problem 02/01/2020 12:00:00 AM EDT eCW1 ([facility]) O24.113 Pre-existing type 2 diabetes mellitus in Pre-existing type 2 diabetes mellitus, in , third trimester Problem 01/12 12:00:00 AM EDT eCW1 ([facility]) O24.113 Pre-existing type 2 diabetes mellitus in Pre-existing type 2 diabetes mellitus, in , third trimester Problem 01/12 12:00:00 AM EDT eCW1 ([facility]) O09.523 [id number] Multigravida of advanced materna l age in third trimester Problem 01/05/2020 12:00:00 AM EDT eCW1 ([facility]) O24.313 [id number] Pre-existing diabete s mellitus affecting in third trimester, antepartum Problem 01/05/2020 12:00:00 AM EDT eCW1 ([facility]) Z79.4 [id number] Insulin long-term use Problem 01/05/2020 12: 00:00 AM EDT eCW1 ([facility]) O09.523 [id number] Multigravida of advanced materna l age in third trimester Problem 01/05/2020 12:00:00 AM EDT eCW1 ([facility]) O24.313 [id number] Pre-existing diabete s mellitus affecting in third trimester, antepartum Problem 01/05/2020 12:00:00 AM EDT eCW1 ([facility]) Z79.4 [id number] Insulin long-term use Problem 01/05/2020 12: 00:00 AM EDT eCW1 ([facility]) O24.013 Pre-existing type 1 diabetes mellitus in Pre-existing type 1 diabetes mellitus, in , third trimester Problem 12/22 12:00:00 AM EDT eCW1 ([facility]) O24.013 Pre-existing type 1 diabetes mellitus in Pre-existing type 1 diabetes mellitus, in , third trimester Problem 12/22 12:00:00 AM EDT eCW1 ([facility]) O24.919 Diabetes mellitus in mother complicating , childbirth AND/OR puerperium Diabetes in Problem 10/12/2019 12:00:00 AM EST eCW1 ([facility]) O24.919 Diabetes mellitus in mother complicating , childbirth AND/OR puerperium Diabetes in Problem 10/12/2019 12:00:00 AM EST eCW1 ([facility]) O24.012 Pre-existing type 1 diabetes mellitus in Pre-existing type 1 diabetes mellitus, in , second trimester Problem 08/31 12:00:00 AM EST eCW1 ([facility]) O24.012 Pre-existing type 1 diabetes mellitus in Pre-existing type 1 diabetes mellitus, in , second trimester Problem 08/31 12:00:00 AM EST eCW1 ([facility]) O09.529 [id number] Advanced maternal age in multigravida Pro blem 08/26/2019 12:00:00 AM EST eCW1 ([facility]) E11.65 Hyperglycemia due to type 2 diabetes michele litus Type 2 diabetes mellitus with hyperglycemia Problem 08/26/2019 12:00:00 AM EST eCW1 ([facility]) O09.529 [id number] Advanced maternal age in multigravida Pro blem 08/26/2019 12:00:00 AM EST eCW1 ([facility]) Z34.80 care Supervision of other normal P roblem 08/24/2019 12:00:00 AM EST eCW1 ([facility]) Z34.80 care Supervision of other normal P roblem 08/24/2019 12:00:00 AM EST eCW1 ([facility]) Surgeries/Procedures Procedure Description Date Indications Data Source(s) NONSTRESS TEST 02/08/2020 12:00:00 AM EDT eCW1 ([facility]) NONSTRESS TEST 02/01/2020 12:00:00 AM EDT eCW1 ([facility]) SUBSEQUENT CARE VISIT 02/01/2020 12:00:00 AM EDT eCW1 ([facility]) US UTERUS LIMITED 1/> FETUSES 01/27/2020 12:0 0:00 AM EDT eCW1 ([facility]) OB Visit 01/20/2020 12:00:00 AM EDT e CW1 ([facility]) STREP A ASSAY W/OPTIC 11/02/2019 12:00:00 AM EST eCW1 ([facility]) Influenza A+B 11/02/2019 12:00:00 AM EST eCW1 ([facility]) Results ID Date Data Source GATS (NEGATIVE STREP SCREEN) 11/02/2019 12:00:00 AM EST eCW1 ([facility]) Name Value Range Interpretation Code Description Data Dennise rce(s) Supporting Document(s) eCW1 ([facility]) GATS (NEGATIVE STREP SCREEN) FULL REPORT IN LAB NOTES (eCW and [facility]). GATS CULTURE (NEG STREP SCR) W1 ([facility]) ID Date Data Source CHLAMYDIA & GC DNA AMPLIFICAT 09/18/2019 12:00:00 AM EST eCW 1 ([facility]) Name Value Range Interpretation Code Description Data Dennise rce(s) Supporting Document(s) Chlamydia trachomatis rRNA [Presence] in Unspecified specimen by Probe and target amplification method NEGATIVE NEGATIVE CHLAMYDIA DNA AMPLIFICATION eCW1 ([facility]) Procedure Social History Code Duration Value Status Description Data Source(s ) Smoking 04/15/2020 12:00:00 AM EDT Never Smoker completed Never S moker eCW1 ([facility]) Smoking 02/08/2020 12:00:00 AM EDT Never Smoker completed Never S moker eCW1 ([facility]) Vital Signs ID Date Data Source UNK Name Value Range Interpretation Code Description Data Source(s) Diastolic blood pressure 80 mm[Hg] 80 mm[Hg] eCW1 ([facility]) Systolic blood pressure 130 mm[Hg] 130 mm[Hg] e CW1 ([facility]) Body mass index (BMI) [Ratio] 33.969 kg/m2 33.9 69 kg/m2 [facility] ([facility]) Body height 64.5 [in_i] 64.5 [in_i] W1 ([facility]) Body weight 201.0 [lb_av] 201.0 [lb_av] eCW1 ([facility]) Diastolic blood pressure 64 mm[Hg] 64 mm[Hg] eCW1 ([facility]) Systolic blood pressure 116 mm[Hg] 116 mm[Hg] e CW1 ([facility]) Body mass index (BMI) [Ratio] 38.295 kg/m2 38.2 95 kg/m2 [facility] ([facility]) Body height 64.5 [in_i] 64.5 [in_i] eCW1 ([facility]) Body weight 226.6 [lb_av] 226.6 [lb_av] eCW1 ([facility]) Diastolic blood pressure 70 mm[Hg] 70 mm[Hg] eCW1 ([facility]) Systolic blood pressure 122 mm[Hg] 122 mm[Hg] e CW1 ([facility]) Body mass index (BMI) [Ratio] 37.416 kg/m2 37.4 16 kg/m2 W1 ([facility]) Body height 64.5 [in_us] 64.5 [in_us] eCW[facility] Body weight Measured 221.4 [lb_av] 221.4 [lb_av ] eCW1 ([facility]) Diastolic blood pressure 76 mm[Hg] 76 mm[Hg] eCW1 ([facility]) Systolic blood pressure 138 mm[Hg] 138 mm[Hg] e CW1 ([facility]) Body mass index (BMI) [Ratio] 36.571 kg/m2 36.5 71 kg/m2 eCW1 ([facility]) Body height 64.5 [in_us] 64.5 [in_us] eCW1 ([facility] Body weight Measured 216.4 [lb_av] 216.4 [lb_av ] eCW1 ([facility]) Diastolic blood pressure 76 mm[Hg] 76 mm[Hg] eCW1 ([facility]) Systolic blood pressure 122 mm[Hg] 122 mm[Hg] e CW1 ([facility]) Body mass index (BMI) [Ratio] 36.74 kg/m2 36.74 kg/m2 eCW1 ([facility]) Body height 64.5 [in_us] 64.5 [in_us] eCW1 ([facility] Body weight Measured 217.4 [lb_av] 217.4 [lb_av ] eCW1 ([facility]) Diastolic blood pressure 70 mm[Hg] 70 mm[Hg] eCW1 ([facility]) Systolic blood pressure 116 mm[Hg] 116 mm[Hg] e CW1 ([facility]) Body mass index (BMI) [Ratio] 35.963 kg/m2 35.9 63 kg/m2 eCW1 ([facility]) Body height 64.5 [in_us] 64.5 [in_us] eCW1 ([facility] Body weight Measured 212.8 [lb_av] 212.8 [lb_av ] eCW1 ([facility]) Diastolic blood pressure 62 mm[Hg] 62 mm[Hg] eCW1 ([facility]) Systolic blood pressure 110 mm[Hg] 110 mm[Hg] e CW1 ([facility]) Body mass index (BMI) [Ratio] 35.895 kg/m2 35.8 95 kg/m2 eCW1 ([facility]) Body height 64.5 [in_us] 64.5 [in_us] eCW1 ([facility]) Body weight Measured 212.4 [lb_av] 212.4 [lb_av ] eCW1 ([facility]) Diastolic blood pressure 76 mm[Hg] 76 mm[Hg] eCW1 ([facility]) Systolic blood pressure 116 mm[Hg] 116 mm[Hg] e CW1 ([facility]) Body mass index (BMI) [Ratio] 35.693 kg/m2 35.6 93 kg/m2 eCW1 ([facility]) Body height 64.5 [in_us] 64.5 [in_us] eCW1 ([facility]) Body weight Measured 211.2 [lb_av] 211.2 [lb_av ] eCW1 ([facility]) Diastolic blood pressure 74 mm[Hg] 74 mm[Hg] eCW1 ([facility]) Systolic blood pressure 116 mm[Hg] 116 mm[Hg] e CW1 ([facility]) Body mass index (BMI) [Ratio] 35.794 kg/m2 35.7 94 kg/m2 W1 ([facility]) Body height 64.5 [in_us] 64.5 [in_us] eCW1 ([facility]) Body weight Measured 211.8 [lb_av] 211.8 [lb_av ] eCW1 ([facility]) Diastolic blood pressure 74 mm[Hg] 74 mm[Hg] eCW1 ([facility]) Systolic blood pressure 112 mm[Hg] 112 mm[Hg] e CW1 ([facility]) Body mass index (BMI) [Ratio] 34.679 kg/m2 34.6 79 kg/m2 W1 ([facility]) Body height 64.5 [in_us] 64.5 [in_us] eCW1 ([facility]) Body weight Measured 205.2 [lb_av] 205.2 [lb_av ] eCW1 ([facility]) Diastolic blood pressure 74 mm[Hg] 74 mm[Hg] eCW1 ([facility]) Systolic blood pressure 116 mm[Hg] 116 mm[Hg] e CW1 ([facility]) Body mass index (BMI) [Ratio] 34.543 kg/m2 34.5 43 kg/m2 eCW1 ([facility]) Body height 64.5 [in_us] 64.5 [in_us] eCW1 ([facility]) Body weight Measured 204.4 [lb_av] 204.4 [lb_av ] eCW1 ([facility]) Diastolic blood pressure 68 mm[Hg] 68 mm[Hg] eCW1 ([facility]) Systolic blood pressure 109 mm[Hg] 109 mm[Hg] e CW1 ([facility]) Body temperature 99.5 [degF] 99.5 [degF] eCW1 ( [facility]) Respiratory rate 18 /min 18 /min eCW1 ([facility]) Heart rate 102 /min 102 /min eCW1 ([facility]) Body mass index (BMI) [Ratio] 34.95 kg/m2 34.95 kg/m2 eCW1 ([facility]) Body height 64.5 [in_us] 64.5 [in_us] eCW1 ([facility]) Body weight Measured 206.8 [lb_av] 206.8 [lb_av ] eCW1 ([facility]) Diastolic blood pressure 74 mm[Hg] 74 mm[Hg] eCW1 ([facility]) Systolic blood pressure 112 mm[Hg] 112 mm[Hg] e CW1 ([facility]) Body mass index (BMI) [Ratio] 34.138 kg/m2 34.1 38 kg/m2 W1 ([facility]) Body height 64.5 [in_us] 64.5 [in_us] eCW1 ([facility]) Body weight Measured 202 [lb_av] 202 [lb_av] eC W1 ([facility]) Diastolic blood pressure 76 mm[Hg] 76 mm[Hg] eCW1 ([facility]) Systolic blood pressure 122 mm[Hg] 122 mm[Hg] e CW1 ([facility]) Body mass index (BMI) [Ratio] 33.327 kg/m2 33.3 27 kg/m2 eCW1 ([facility]) Body height 64.5 [in_us] 64.5 [in_us] eCW1 ([facility]) Body weight Measured 197.2 [lb_av] 197.2 [lb_av ] W1 ([facility]) Diastolic blood pressure 72 mm[Hg] 72 mm[Hg] eCW1 ([facility]) Systolic blood pressure 118 mm[Hg] 118 mm[Hg] e CW1 ([facility]) Body mass index (BMI) [Ratio] 32.617 kg/m2 32.6 17 kg/m2 W1 ([facility]) Body height 64.5 [in_us] 64.5 [in_us] eCW1 ([facility]) Body weight Measured 193 [lb_av] 193 [lb_av] eC W1 ([facility]) Patient Treatment Plan of Care Planned Activity Planned Date Details Description Data Source (s) Promethazine Hydrochloride 25 MG Oral Tablet 09/18/2019 12:00:00 AM EST eCW1 ([facility])
[2020-10-12 14:39] LABS: BASO % 0.2 % (0.0-1.0); EOS % 0.2 % (0.0-3.0); HEMATOCRIT 42.6 % (36.0-47.0); HEMOGLOBIN 14.5 g/dl (12.0-15.5); LYMPH # 2.6 10^3/uL (1.5-5.0); LYMPH % 28.5 % (24.0-44.0); MEAN CORPUSCULAR HEMOGLOBIN 31.3 pg (27.0-33.0); MONO # 0.5 10^3/uL (0.0-0.8); MONO % 5.1 % (0.0-5.0); NEUTROPHILS # 5.9 10^3/uL (1.5-8.5); NEUTROPHILS % 65.8 % (36.0-66.0); PLATELET COUNT, AUTOMATED 381 10^3/uL (150-450); RED BLOOD COUNT 4.63 10^6/uL (4.00-5.40)
[2020-10-12 15:09] LABS: ALBUMIN 4.2 GM/DL (3.2-5.2); ALT/SGPT 23 U/L (12-78); BILIRUBIN,DIRECT 0.1 MG/DL (0.0-0.2); BILIRUBIN,TOTAL 0.5 MG/DL (0.2-1.0); BLOOD UREA NITROGEN 10 MG/DL (7-18); CALCIUM LEVEL 10.1 MG/DL (8.5-10.1); CARBON DIOXIDE LEVEL 23 MEQ/L (21-32); CHLORIDE LEVEL 102 MEQ/L (98-107); CREATININE FOR GFR 0.84 MG/DL (0.55-1.30); GLOMERULAR FILTRATION RATE > 60.0 (>60); GLUCOSE, FASTING 411 MG/DL (70-100); LIPASE 137 U/L (73-393); POTASSIUM SERUM 4.4 MEQ/L (3.5-5.1); SODIUM LEVEL 132 MEQ/L (136-145); TOTAL PROTEIN 8.3 GM/DL (6.4-8.2)
--- NOTE | 2020-10-12 16:04 | REP ---
INDICATION: r/o ectopic. COMPARISON: None. TECHNIQUE: Real-time sonographic evaluation of pelvis performed utilizing transabdominal and endovaginal technique. FINDINGS: Uterus measures 9.4 x 5.2 x 5.6 cm. Endometrial thickness is 14 mm. There is no endometrial fluid collection or gestational sac visualized. Right ovary measures 3.1 x 1.8 x 3.5 cm left ovary 2.7 x 1.1 x 2.6 cm. There is blood flow seen in each ovary with duplex Doppler evaluation, with no torsion. Along the anterior aspect of the right ovary an oval area of hypoechoic echotexture demonstrates internal blood flow in its periphery, measuring 2.5 x 1.3 x 2.4 cm. This may represent an ectopic . No free fluid is seen. IMPRESSION: Possible ectopic adjacent to the right ovary. <Electronically signed by Coleman Dumont > 10/12/20 1600
[2020-10-12 17:23] VITALS: BP 140/95
--- NOTE | 2020-10-15 06:08 | ED PDOC ---
Post-Departure Follow-Up dr stoner faxed ana luisa iverson of 1st trimester us for fu Chelly Pizarro MD Oct 15, 2020 06:08
== END 2020-10-12 17:27 | disposition home or self-care (01) ==
LOC: M ED 12:47
DX: O20.0 Threatened abortion (principal); O24.111 Pre-existing type 2 diabetes mellitus, in pregnancy, first trimester; O99.351 Diseases of the nervous system complicating pregnancy, first trimester; R56.9 Unspecified convulsions; Z88.0 Allergy status to penicillin; Z91.030 Bee allergy status; Z79.84 Long term (current) use of oral hypoglycemic drugs; Z3A.01 Less than 8 weeks gestation of pregnancy

== ENCOUNTER → 2020-10-14 | Outpatient (CLI) | payer OTHER | LOC: M LAB 08:46 | PROVIDERS: ATTEND Nurse Practitioner Family | DX: O99.891 Other specified diseases and conditions complicating pregnancy (principal); R10.2 Pelvic and perineal pain; Z3A.00 Weeks of gestation of pregnancy not specified ==

== ENCOUNTER → 2020-10-14 | Outpatient (CLI) | payer OTHER ==
--- NOTE | 2020-10-14 14:03 | REP ---
INDICATION: (+) PREG DATING VIABILITY? ECTOPIC. COMPARISON: 10/12/2020. TECHNIQUE: Ultrasound pelvis performed utilizing transabdominal and endovaginal technique. FINDINGS: Uterus measures 10.4 x 5.4 x 7.2 cm. No gestational sac is or fluid collection is seen in the endometrial cavity. AP thickness of the endometrium is 17 mm. Right ovary measures 4.0 x 2.3 x 3.8 cm and left ovary 2.8 x 1.7 x 2.2 cm. There is no evidence of ovarian torsion bilaterally, blood flow is seen in each ovary with duplex Doppler evaluation. Along the anterior right ovary a hypoechoic area is again seen measuring 2.1 x 1.2 x 2.1 cm. This is unchanged. No free fluid is seen. IMPRESSION: Endometrium measures 17 mm, with no gestational sac identified and no evidence of endometrial fluid collection. Hypoechoic area along the anterior right ovary appears essentially unchanged. Differential diagnosis includes very early intrauterine , missed AB or ectopic . Suggest continued correlation with serial quantitative beta HCG values, and follow-up ultrasound is necessary. <Electronically signed by Coleman Dumont > 10/14/20 1400
== END ==
LOC: M RAD 12:59
PROVIDERS: ATTEND Advanced Practice Midwife
DX: R10.2 Pelvic and perineal pain (principal)

== ENCOUNTER → 2020-10-16 | Outpatient (CLI) | payer OTHER | LOC: M LAB 11:25 | PROVIDERS: ATTEND Nurse Practitioner Family | DX: O36.80X0 Pregnancy with inconclusive fetal viability, not applicable or unspecified (principal); Z3A.00 Weeks of gestation of pregnancy not specified ==

== ENCOUNTER → 2020-10-25 | Outpatient (REF) | payer OTHER | LOC: M PLALAB 10:08 | PROVIDERS: ATTEND Obstetrics & Gynecology | DX: O24.311 Unspecified pre-existing diabetes mellitus in pregnancy, first trimester (principal); Z3A.00 Weeks of gestation of pregnancy not specified; Z53.9 Procedure and treatment not carried out, unspecified reason ==

== ENCOUNTER → 2020-11-24 | Outpatient (CLI) | payer OTHER | LOC: M PLALAB 13:36 | PROVIDERS: ATTEND Obstetrics & Gynecology | DX: O09.521 Supervision of elderly multigravida, first trimester (principal); Z3A.00 Weeks of gestation of pregnancy not specified ==

== ENCOUNTER → 2020-11-24 | Outpatient (REF) | payer OTHER ==
[2020-11-25 12:16] LABS: HEMATOCRIT 35.4 % (36.0-47.0); HEMOGLOBIN 11.8 g/dl (12.0-15.5); MEAN CORPUSCULAR HEMOGLOBIN 32.2 pg (27.0-33.0); MEAN CORPUSCULAR HGB CONC 33.3 g/dl (32.0-36.5); MEAN CORPUSCULAR VOLUME 96.5 fl (80.0-96.0); PLATELET COUNT, AUTOMATED 349 10^3/uL (150-450); RED BLOOD COUNT 3.67 10^6/uL (4.00-5.40); WHITE BLOOD COUNT 7.9 10^3/uL (4.0-10.0)
[2020-11-25 13:06] LABS: ALBUMIN 3.2 GM/DL (3.2-5.2); ALT/SGPT 15 U/L (12-78); BILIRUBIN,TOTAL 0.2 MG/DL (0.2-1.0); BLOOD UREA NITROGEN 11 MG/DL (7-18); CALCIUM LEVEL 9.6 MG/DL (8.5-10.1); CARBON DIOXIDE LEVEL 23 MEQ/L (21-32); CHLORIDE LEVEL 105 MEQ/L (98-107); CREATININE FOR GFR 0.67 MG/DL (0.55-1.30); FREE T4 0.96 NG/DL (0.76-1.46); GLOMERULAR FILTRATION RATE > 60.0 (>60); GLUCOSE, FASTING 263 MG/DL (70-100); SODIUM LEVEL 135 MEQ/L (136-145); TOTAL PROTEIN 6.7 GM/DL (6.4-8.2)
[2020-11-25 13:15] LABS: CREATININE,RANDOM URINE 44.1 MG/DL; TOTAL PROTEIN,RANDOM URINE < 5.0 MG/DL (0.0-12.0)
[2020-11-25 13:33] LABS: HEPATITIS C VIRUS ABY INDEX < 0.0 INDEX (<0.8); HIV 1&2 SCREEN CENTAUR NEGATIVE (NEGATIVE)
[2020-11-25 13:43] LABS: HEMOGLOBIN A1c 7.7 %
== END ==
LOC: M PLALAB 11:24
PROVIDERS: ATTEND Obstetrics & Gynecology
DX: O24.311 Unspecified pre-existing diabetes mellitus in pregnancy, first trimester (principal)

== ENCOUNTER → 2020-12-08 | Outpatient (CLI) | payer OTHER | LOC: M PLALAB 08:43 | PROVIDERS: ATTEND Obstetrics & Gynecology | DX: O09.522 Supervision of elderly multigravida, second trimester (principal); Z3A.00 Weeks of gestation of pregnancy not specified ==

== ENCOUNTER → 2020-12-19 | Outpatient (CLI) | payer OTHER | LOC: M WHC 17:33 | PROVIDERS: ATTEND Obstetrics & Gynecology | DX: Z34.92 Encounter for supervision of normal pregnancy, unspecified, second trimester (principal); Z3A.14 14 weeks gestation of pregnancy ==

== ENCOUNTER → 2021-01-19 | Outpatient (CLI) | payer OTHER ==
--- NOTE | 2021-01-19 10:31 | REP ---
INDICATION: ANATOMY COMPARISON: 10/14/2020 TECHNIQUE: Transabdominal obstetrical ultrasound with color Doppler evaluation. FINDINGS: Examination demonstrates a single live intrauterine in breech presentation. motion is identified by technologist. Placenta is noted posterior and grade 1 without evidence for placenta previa or abruption. Amniotic fluid volume is normal. Cervix measures 4.0 cm in length and appears closed.. Gestational age by LMP 18 weeks 2 days with KIKE 06/20/2021. Gestational age by current measurements 18 weeks 0 days with KIKE 06/22/2021. FHR equals 143 beats per minute. BPD: 3.5 cm at 16 weeks 6 days HC: 14.7 cm at 17 weeks 6 days AC: 12.3 cm at 18 weeks 0 days FL: 2.8 cm at 18 weeks 3 days HL: 2.7 cm at 18 weeks 4 days HC/AC: 1.19 Estimated weight 224 grams (35thpercentile). 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 There also appears to be a curvilinear fluid collection along the region of the thoracic spine which may represent syrinx. A 2 vessel cord is also noted and the bladder remained collapsed during the entire examination. Normal visualized structures include facial profile, nose/lips, lungs, heart/ventricular outflow tracts, diaphragm, stomach, abdominal wall, kidneys and extremities. 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 Correlation and further investigation/testing is warranted. <Electronically signed by Omid Ramirez > 01/19/21 [id number]
== END ==
LOC: M WHC 08:59
PROVIDERS: ATTEND Obstetrics & Gynecology
DX: Z36.89 Encounter for other specified antenatal screening (principal); Z3A.14 14 weeks gestation of pregnancy

== ENCOUNTER → 2021-03-03 | Outpatient (REF) | payer OTHER ==
[~2021-03-03] MED LIST changes: +NOVOINJ12 SQ; +NOVOINJ13 SQ
== END ==
LOC: M SFHCWAGY 12:13
PROVIDERS: ATTEND Obstetrics & Gynecology
DX: O24.113 Pre-existing type 2 diabetes mellitus, in pregnancy, third trimester (principal); Z3A.00 Weeks of gestation of pregnancy not specified

== ENCOUNTER 2021-03-05 10:59 | Emergency (ER) | payer OTHER ==
[~2021-03-05] VITALS: Ht 162.6 cm; Wt 94.1 kg
[~2021-03-05 10:59] MED LIST changes: -NOVOINJ12 SQ; -NOVOINJ13 SQ
[2021-03-05] MEDS ORDERED: NOVOINJ13 SQ (11:21)
[2021-03-05] MEDS ORDERED: NOVOINJ12 SQ (11:21)
[2021-03-05 12:59] VITALS: BP 138/72
== END 2021-03-05 13:00 | disposition home or self-care (01) ==
LOC: M ED 10:59
DX: M79.671 Pain in right foot (principal); Z88.0 Allergy status to penicillin; E11.9 Type 2 diabetes mellitus without complications; Z79.4 Long term (current) use of insulin; Z91.030 Bee allergy status

== ENCOUNTER → 2021-03-17 | Outpatient (REF) | payer OTHER ==
[~2021-03-17] MED LIST changes: -HYDR1CRE93 TOP; +HYDR28CR33 TOP; +NOVOINJ12 SQ; +NOVOINJ13 SQ; +PRENTAB9 PO; +REGL5TAB2 PO
== END ==
LOC: M SFHCWAGY 12:55
PROVIDERS: ATTEND Specialist
DX: N39.0 Urinary tract infection, site not specified (principal)

== ENCOUNTER 2021-03-19 20:06 | Outpatient (CLI) | payer OTHER ==
[~2021-03-19] VITALS: Ht 162.6 cm; Wt 93.6 kg
[~2021-03-19 20:06] MED LIST changes: -PRENTAB9 PO; -REGL5TAB2 PO
[2021-03-19 20:22] VITALS: BP 137/86
[2021-03-19] MEDS ORDERED: PRENTAB9 PO (20:48)
[2021-03-19] MEDS ORDERED: LR 1,000 ML IV ONE (21:05)
[2021-03-19 22:43] VITALS: BP 132/77
[2021-03-19] MEDS ORDERED: ACETAMINOPHEN 500 MG TAB PO PRN (22:50)
[2021-03-19] MEDS ORDERED: REGL5TAB2 PO (23:50)
--- NOTE | 2021-03-20 00:07 | IPNPDOC ---
Text Note Date of Service The patient was seen on 03/19/21. NOTE Triage Note Sheryl is a 35yo with SIUP at 26w5d presenting for DFM and ctx. She notes she has not felt her baby move in 24hr and she normally feels very active movement. She also notes that she has had cramping/ctx that are somewhat uncomfortable, not very strong. No LOF. No vaginal bleeding. Incidentally on questioning she endorses continued daily n/v since 1st trimester- she was prescribed zofran which she states does not help. She feels she hydrates adequately. Urine culture done on 03/17 had no growth. Before I knew that patient had recent ucx, I planned to obtain urine for UA but patient was unable to urinate even after 1L of LR likely 2/2 dehydration. Vitals: before IVF pulse 120's, normotensive, temp 99.3. After IVF pulse 100's. General: WDWN, resting comfortably in bed Abdomen: soft, gravid, NTTP Extremities: no edema of BLE SCE: closed/thick/high TAUS: SIUP with cephalic presentation (encephalocele noted), +FCA, active FM, posterior placenta, MVP 8cm Cat I FHRT with bl 150's, +accels, -decels, mod patric [place]: irregular ctx spaced out with IVF Assessment: Sheryl is a 35yo with SIUP at 26w5d with reassuring assessment and NO e/o PTL. Cat I FHRT, robust movement on u/s with MVP 8cm. SCE cl/th/high and ctx spaced with IVF. Pulse came down with IVF to 100's. Benign exam. Plan: -Safe for discharge home -Keep next routine OB visit on 03/31 and PNC appt on 03/23 -Rx Reglan 5mg PO q6hr prn nausea to assist patient in staying hydrated. Also encouraged her to have intentional hydration. -Discussed return precautions Peggy Gracia MD VS,Ruth, I+O VS, Ruth I+O Vital Signs Date Time Temp Pulse Resp B/P (MAP) Pulse Ox O2 Delivery O2 Flow Rate FiO2 03/19/21 22:53 107 18 03/19/21 22:43 99.3 132/77 (95) Peggy Gracia MD Mar 20, 2021 00:07
== END 2021-03-20 00:10 | disposition home or self-care (01) ==
LOC: M LDO 20:06
PROVIDERS: ATTEND Obstetrics & Gynecology
DX: O36.8120 Decreased fetal movements, second trimester, not applicable or unspecified (principal); Z3A.26 26 weeks gestation of pregnancy; O99.282 Endocrine, nutritional and metabolic diseases complicating pregnancy, second trimester; E86.0 Dehydration; O09.522 Supervision of elderly multigravida, second trimester; Z88.0 Allergy status to penicillin; Z91.030 Bee allergy status; Z91.048 Other nonmedicinal substance allergy status

== ENCOUNTER 2021-03-29 08:39 | Emergency (ER) | payer OTHER ==
[~2021-03-29] VITALS: Ht 162.6 cm; Wt 94.0 kg
[~2021-03-29 08:39] MED LIST changes: +PRENTAB9 PO; +REGL5TAB2 PO
[2021-03-29 08:42] VITALS: BP 142/81
[2021-03-29] MEDS ORDERED: VITMTA PO (08:53)
== END 2021-03-29 09:18 | disposition admitted as inpatient to this hospital (09) ==
LOC: EDBD 08:39 → M ED 08:39
DX: Z04.1 Encounter for examination and observation following transport accident (principal); O24.414 Gestational diabetes mellitus in pregnancy, insulin controlled; Z3A.28 28 weeks gestation of pregnancy; Z79.4 Long term (current) use of insulin; Z79.899 Other long term (current) drug therapy; Z88.0 Allergy status to penicillin; Z91.048 Other nonmedicinal substance allergy status; Z91.030 Bee allergy status

== ENCOUNTER 2021-03-29 09:17 | Outpatient (CLI) | payer OTHER ==
[~2021-03-29] VITALS: Ht 162.6 cm; Wt 92.5 kg
[~2021-03-29 09:17] MED LIST changes: +VITMTA PO
[2021-03-29 09:34] VITALS: BP 110/54
[2021-03-29 10:25] LABS: HEMATOCRIT 32.4 % (36.0-47.0); HEMOGLOBIN 11.2 g/dl (12.0-15.5); MEAN CORPUSCULAR HEMOGLOBIN 31.2 pg (27.0-33.0); MEAN CORPUSCULAR HGB CONC 34.6 g/dl (32.0-36.5); MEAN CORPUSCULAR VOLUME 90.3 fl (80.0-96.0); PLATELET COUNT, AUTOMATED 294 10^3/uL (150-450); RED BLOOD COUNT 3.59 10^6/uL (4.00-5.40); WHITE BLOOD COUNT 8.9 10^3/uL (4.0-10.0)
[2021-03-29 10:35] LABS: INR 0.86; PARTIAL THROMBOPLASTIN TIME 24.1 SECONDS (24.2-38.5); PROTHROMBIN TIME 11.9 SECONDS (12.5-14.3)
[2021-03-29 11:44] VITALS: BP 107/68
[2021-03-29 12:21] VITALS: BP 110/62
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
== END 2021-03-29 12:24 | disposition home or self-care (01) ==
LOC: M LDO 09:17
PROVIDERS: ATTEND Advanced Practice Midwife
DX: O9A.213 Injury, poisoning and certain other consequences of external causes complicating pregnancy, third trimester (principal); Z3A.28 28 weeks gestation of pregnancy; V89.2XXA Person injured in unspecified motor-vehicle accident, traffic, initial encounter; O09.523 Supervision of elderly multigravida, third trimester; O24.113 Pre-existing type 2 diabetes mellitus, in pregnancy, third trimester; O99.213 Obesity complicating pregnancy, third trimester; E66.9 Obesity, unspecified; O99.353 Diseases of the nervous system complicating pregnancy, third trimester; G40.909 Epilepsy, unspecified, not intractable, without status epilepticus; Z88.0 Allergy status to penicillin; Z91.030 Bee allergy status; Z91.038 Other insect allergy status; Z91.09 Other allergy status, other than to drugs and biological substances
CPT/HCPCS: 36415; 85027; 85384; 85460; 85610; 85730; G0378; G0463

== ENCOUNTER 2021-04-06 09:11 | Outpatient (CLI) | payer OTHER ==
[~2021-04-06] VITALS: Ht 162.6 cm; Wt 96.0 kg
[2021-04-06 09:28] VITALS: BP 121/76
[2021-04-06] MEDS ORDERED: LR 1,000 ML IV SCH (09:50)
[2021-04-06] MEDS ORDERED: LACTATED RINGER'S 1000 ML IV STA (09:50)
[2021-04-06] MEDS ORDERED: TERBUTALINE SULFATE 1 MG/ML VIAL (J3105) SC STA (10:53)
[2021-04-06 11:05] VITALS: BP 108/66
[2021-04-06 11:22] VITALS: BP 119/66
[2021-04-06 12:15] VITALS: BP 118/64
[2021-04-06 12:57] VITALS: BP 124/71
--- NOTE | 2021-04-06 13:06 | IPNPDOC ---
Text Note Date of Service The patient was seen on 04/06/21. NOTE S: 35 yo female at 29 2/7 weeks gestation presents with contractions for one day. They increased in intensity. no bleeding. H/o diabetes that is poorly controlled. known encephalocele in the fetus. O: AVSS NAD Abd: NT, gravid FHT: Cat. I toco: q3 minutes, mild SVE: L/C/P ext: NT A/P 35 yo at 29 2/7 weeks with contractions, not in labor IVF's Give dose of SC Terbutaline Observe for several hours Sned home once contractions decrease VS,Fishbone, I+O VS, Fishbone, I+O Vital Signs Date Time Temp Pulse Resp B/P (MAP) Pulse Ox O2 Delivery O2 Flow Rate FiO2 04/06/21 11:22 120 18 119/66 (83) Room Air 04/06/21 09:28 98.2 SABINA ARMSTRONG MD Apr 06, 2021 13:05
== END 2021-04-06 13:17 | disposition home or self-care (01) ==
LOC: M LDO 09:11
PROVIDERS: ATTEND Specialist
DX: O60.03 Preterm labor without delivery, third trimester (principal); Z3A.29 29 weeks gestation of pregnancy; O35.0XX0 Maternal care for (suspected) central nervous system malformation in fetus, not applicable or unspecified; O09.523 Supervision of elderly multigravida, third trimester; Z88.0 Allergy status to penicillin; Z91.030 Bee allergy status; Z91.038 Other insect allergy status; Z91.048 Other nonmedicinal substance allergy status
CPT/HCPCS: 96360; 96361; 96372; J3105

== ENCOUNTER 2021-04-19 09:02 | Outpatient (CLI) | payer OTHER ==
[~2021-04-19] VITALS: Ht 162.6 cm; Wt 98.3 kg
[2021-04-19] MEDS ORDERED: metroNIDAZOLE (FLAGYL) 500MG TABLET PO ONE (11:00)
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
[2021-04-19 14:52] LABS: GC DNA AMPLIFICATION NEGATIVE (NEGATIVE)
== END 2021-04-19 11:10 | disposition home or self-care (01) ==
LOC: M LDO 09:02
PROVIDERS: ATTEND Advanced Practice Midwife
DX: O47.03 False labor before 37 completed weeks of gestation, third trimester (principal); Z3A.31 31 weeks gestation of pregnancy; O09.513 Supervision of elderly primigravida, third trimester; O99.213 Obesity complicating pregnancy, third trimester; E66.9 Obesity, unspecified; O26.893 Other specified pregnancy related conditions, third trimester; N77.1 Vaginitis, vulvitis and vulvovaginitis in diseases classified elsewhere; O24.113 Pre-existing type 2 diabetes mellitus, in pregnancy, third trimester; Z79.4 Long term (current) use of insulin; O34.211 Maternal care for low transverse scar from previous cesarean delivery; Z88.0 Allergy status to penicillin; Z91.038 Other insect allergy status; Z91.048 Other nonmedicinal substance allergy status

== ENCOUNTER 2021-04-24 15:35 | Outpatient (CLI) | payer OTHER ==
[~2021-04-24] VITALS: Ht 162.6 cm; Wt 98.7 kg
[2021-04-24] VITALS (9 sets, daily range): BP systolic 119–150; BP diastolic 76–90
[2021-04-24] MEDS ORDERED: METR375C3 PO (16:00)
[2021-04-24] MEDS ORDERED: LACTATED RINGER'S 1000 ML IV ONE (18:05)
--- NOTE | 2021-04-24 19:09 | REP ---
INDICATION: contractions-; SUAJTA and placenta. COMPARISON: None. TECHNIQUE: Transabdominal FINDINGS: Multiple ultrasonographic images of the gravid uterus shows a single living intrauterine gestation in the cephalic presentation. Doppler interrogation of the heart shows a heart rate of 163 beats per minute. The placenta is posterior and not low-lying. The cervix measures 3.2 cm in length and is closed. Doppler interrogation of the umbilical artery shows an A\B ratio of 2.01. This is within the normal range. The subjective amniotic fluid volume is increased. The calculated amniotic fluid index is 32.7 within expected range of 8.6-24 biophysical profile score is 2 for breathing, 2 for movement, 2 for tone, and 2 for amniotic fluid volume giving a sum total of 8/8. IMPRESSION: Limited OB ultrasound showing a single living intrauterine gestation as described above with polyhydramnios. No biometry was ordered or performed. Once again, significant cranial abnormalities were noted consistent with an encephalocele. This was seen on prior OB ultrasound examinations. <Electronically signed by Karan Sousa > 04/24/21 [id number]
--- NOTE | 2021-04-24 19:10 | REP ---
INDICATION: r/o DVT left upper thigh. COMPARISON: None. TECHNIQUE: Multiple ultrasonographic images of the deep venous structures of the left lower extremity were obtained from the inguinal ligament to the ankle. Venous compression techniques, color doppler imaging, and augmentation techniques were also obtained where appropriate. As per the ACR guidelines the anterior tibial vein can not be effectively evaluated. Only compression techniques in the calf on the peroneal and posterior tibial veins was attempted/performed. FINDINGS: There is no abnormal echogenic material seen within any of the visualized deep venous structures that would suggest acute thrombosis. Coaptation is unremarkable throughout. Doppler interrogation shows an expected response to respiratory variability and augmentation in the thigh. Compression techniques in the calf showed no abnormality. The color flow images show what appears to be a normal vascular pattern throughout the thigh. IMPRESSION: There is no ultrasonographic evidence of deep venous thrombosis involving any of the visualized deep venous structures of the left lower extremity as described above. <Electronically signed by Karan Sousa > 04/24/21 [id number]
[2021-04-24] MEDS ORDERED: MAGNESIUM SULFATE 4% INJ 20GM/500ML (40MG/ML) As Ordered ONE (19:54)
[2021-04-24] MEDS ORDERED: MAGNESIUM *L&D* 4GM/100ML BAG (40MG/ML) As Ordered ONE (19:54)
[2021-04-24] MEDS ORDERED: MAGNESIUM *L&D* 4GM/100ML BAG (40MG/ML) IV ONE (19:55)
[2021-04-24] MEDS ORDERED: MAG Sulf (OBGYN) 20GM/500ML 20,000 MG in IV 1 EA IV SCH (19:55)
[2021-04-24] MEDS ORDERED: BETAMETHASONE SOLUSPAN 6MG/ML 5ML VIAL (J0702 PER 3MG) IM SCH ×2 (19:55→20:30)
[2021-04-24] MEDS ORDERED: ceFAZolin SOD 2 GM in IV 1 EA IV ONE (20:15)
[2021-04-24] MEDS ORDERED: HumaLOG INSULIN (NovoLOG) PER UNIT SC ONE (20:45)
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
[2021-04-24] MEDS ORDERED: ONDANSETRON 4MG/2ML VIAL IV ONE (21:50)
== END 2021-04-24 22:15 | disposition other institution (70) ==
LOC: M LDO 15:35
PROVIDERS: ATTEND Advanced Practice Midwife
DX: O60.03 Preterm labor without delivery, third trimester (principal); Z3A.31 31 weeks gestation of pregnancy; O99.213 Obesity complicating pregnancy, third trimester; E66.9 Obesity, unspecified; O24.113 Pre-existing type 2 diabetes mellitus, in pregnancy, third trimester; E11.65 Type 2 diabetes mellitus with hyperglycemia; O09.523 Supervision of elderly multigravida, third trimester; O35.9XX0 Maternal care for (suspected) fetal abnormality and damage, unspecified, not applicable or unspecified; Z88.0 Allergy status to penicillin; Z91.048 Other nonmedicinal substance allergy status; O34.211 Maternal care for low transverse scar from previous cesarean delivery; Z91.030 Bee allergy status; Z91.038 Other insect allergy status
CPT/HCPCS: 59025; 76815; 76817; 76819; 87081; 87186; 93971; 96361; 96372; 96374; J0690; J0702; J2405; J3475; U0002

== ENCOUNTER → 2021-08-22 | Outpatient (REF) | payer OTHER ==
[~2021-08-22] MED LIST changes: +METR375C3 PO
== END ==
LOC: M LAB REF 15:44
PROVIDERS: ATTEND Nurse Practitioner Family
DX: J06.9 Acute upper respiratory infection, unspecified (principal)

== ENCOUNTER 2021-12-11 22:17 | Emergency (ER) | payer OTHER ==
[~2021-12-11] VITALS: Ht 162.6 cm; Wt 86.4 kg
[2021-12-11 22:19] VITALS: BP 128/85
== END 2021-12-12 00:59 | disposition left against medical advice (07) ==
LOC: M ED 22:17
DX: Z53.20 Procedure and treatment not carried out because of patient's decision for unspecified reasons (principal)

== ENCOUNTER → 2022-09-14 | Outpatient (CLI) | payer OTHER | LOC: M WUC 15:36 | PROVIDERS: ATTEND Physician Assistant | DX: S63.511A Sprain of carpal joint of right wrist, initial encounter (principal); X58.XXXA Exposure to other specified factors, initial encounter ==

== ENCOUNTER → 2023-05-02 | Outpatient (CLI) | payer OTHER ==
[2023-05-02 17:18] LABS: BASO % 0.5 % (0.0-1.0); EOS % 0.3 % (0.0-3.0); HEMATOCRIT 40.7 % (36.0-47.0); HEMOGLOBIN 13.4 g/dl (12.0-15.5); LYMPH % 32.1 % (24.0-44.0); MEAN CORPUSCULAR HEMOGLOBIN 30.9 pg (27.0-33.0); MEAN CORPUSCULAR HGB CONC 32.9 g/dl (32.0-36.5); MEAN CORPUSCULAR VOLUME 93.8 fl (80.0-96.0); MONO # 0.5 10^3/uL (0.0-0.8); MONO % 8.2 % (2.0-8.0); NEUTROPHILS # 3.6 10^3/uL (1.5-8.5); NEUTROPHILS % 58.6 % (36.0-66.0); PLATELET COUNT, AUTOMATED 290 10^3/uL (150-450); RED BLOOD COUNT 4.34 10^6/uL (4.00-5.40); WHITE BLOOD COUNT 6.1 10^3/uL (4.0-10.0)
[2023-05-02 17:24] LABS: CREATININE, URINE 52.3 MG/DL; MAU/CREAT RATIO 22.9 MCG/MG (0.0-30.0)
[2023-05-02 17:37] LABS: HEMOGLOBIN A1c 12.1 % (4.0-6.0)
[2023-05-02 17:50] LABS: ALBUMIN 3.8 G/DL (3.2-5.2); ALKALINE PHOSPHATASE 141 U/L (46-116); ALT/SGPT 17 U/L (7.0-40); AST/SGOT 13 U/L (<34); BILIRUBIN,TOTAL 0.7 MG/DL (0.3-1.2); BLOOD UREA NITROGEN 8 MG/DL (9-23); CALCIUM LEVEL 8.9 MG/DL (8.5-10.1); CARBON DIOXIDE LEVEL 21 MMOL/L (20-31); CHLORIDE LEVEL 101 MMOL/L (98-107); CHOLESTEROL LEVEL 182 MG/DL (<200); CHOLESTEROL RISK RATIO 3.33 (<5); CREATININE FOR GFR 0.42 MG/DL (0.55-1.30); GLOMERULAR FILTRATION RATE > 60.0 (>60); GLUCOSE, FASTING 283 MG/DL (60-100); HDL CHOLESTEROL 54.5 MG/DL (>40); LDL CHOLESTEROL 100.3 MG/DL (<100); NON-HDL-C 127.5 MG/DL; POTASSIUM SERUM 3.8 MMOL/L (3.5-5.1); SODIUM LEVEL 136 MMOL/L (136-145); TOTAL PROTEIN 7.1 G/DL (5.7-8.2); TRIGLYCERIDES LEVEL 136 MG/DL (<150)
[2023-05-02 17:51] LABS: TOTAL 25(OH) VITAMIN D 26.8 NG/ML (20.0-100.0)
[2023-05-02 17:52] LABS: THYROID STIMULATING HORMONE 1.021 uIU/ML (0.55-4.78)
== END ==
LOC: M WUC 12:32
PROVIDERS: ATTEND Physician Assistant
DX: Z00.00 Encounter for general adult medical examination without abnormal findings (principal); E11.69 Type 2 diabetes mellitus with other specified complication

== ENCOUNTER 2023-05-19 13:44 | Emergency (ER) | payer OTHER ==
[~2023-05-19] VITALS: Ht 162.6 cm; Wt 93.2 kg
[2023-05-19] MEDS ORDERED: PERCOCET PO (14:03)
[2023-05-19] MEDS ORDERED: SEMA2PEN SQ (14:03)
[2023-05-19] MEDS ORDERED: METF-817 PO (14:03)
[2023-05-19 17:20] VITALS: BP 143/86; TEMP 98.5; O2SAT 97
[2023-05-21] MEDS ORDERED: ROSU5TAB5 PO (12:33)
== END 2023-05-19 17:22 | disposition home or self-care (01) ==
LOC: M ED 13:44
DX: S82.852A Displaced trimalleolar fracture of left lower leg, initial encounter for closed fracture (principal); X50.0XXA Overexertion from strenuous movement or load, initial encounter; Y92.89 Other specified places as the place of occurrence of the external cause; Y93.89 Activity, other specified; Y99.8 Other external cause status; Z88.0 Allergy status to penicillin; Z91.030 Bee allergy status; Z79.899 Other long term (current) drug therapy; Z79.84 Long term (current) use of oral hypoglycemic drugs

== ENCOUNTER 2023-05-22 14:08 | Day surgery (SDC) | payer OTHER ==
[~2023-05-22] VITALS: Ht 162.6 cm; Wt 84.6 kg
[~2023-05-22 14:08] MED LIST changes: +METF-817 PO; +PERCOCET PO; +ROSU5TAB5 PO; +SEMA2PEN SQ
[2023-05-22] MEDS ORDERED: fentaNYL 100 MCG/2 ML INJECTION As Ordered ONE (14:31)
[2023-05-22] MEDS ORDERED: ROPIvacaine 0.5% 30ML VIAL PN ONE ×2 (14:45→14:55)
[2023-05-22] MEDS ORDERED: INSULIN LISPRO (NovoLOG) PER UNIT SC PRN (14:45)
[2023-05-22] MEDS ORDERED: LR 1,000 ML IV SCH (14:50)
[2023-05-22] MEDS: MIDAZOLAM INJ 2MG/2ML VIAL IV PRN (15:11)
[2023-05-22] MEDS: fentaNYL 100 MCG/2 ML INJECTION IV PRN ×6 (15:11→21:46)
[2023-05-22] MEDS ORDERED: TRANEXAMIC ACID 100 MG/ML 10ML VIAL As Ordered ONE (15:47)
[2023-05-22] MEDS ORDERED: ceFAZolin 2 GM/D5W 50 ML IV BAG As Ordered ONE (15:47)
[2023-05-22] MEDS ORDERED: OXYC1CAP PO (15:52)
[2023-05-22] MEDS ORDERED: CLINDAMYCIN 900MG/6ML VIAL As Ordered ONE ×2 (16:23→20:22)
[2023-05-22] MEDS ORDERED: DESFLURANE 240 ML INHALANT As Ordered ONE (16:41)
[2023-05-22] MEDS ORDERED: ROCURONIUM BROMIDE 50MG/5ML VIAL As Ordered ONE (17:10)
[2023-05-22] MEDS ORDERED: propofoL 200 MG/20 ML VIAL As Ordered ONE (17:10)
[2023-05-22] MEDS ORDERED: LIDOCAINE 2% 100MG/5ML SDV (FOR ANES.) As Ordered ONE (17:11)
[2023-05-22] MEDS ORDERED: fentaNYL 250 MCG/5 ML INJECTION As Ordered ONE (17:14)
[2023-05-22] MEDS ORDERED: VANCOMYCIN 1000MG/20ML VIAL As Ordered ONE ×2 (18:05→18:38)
[2023-05-22] MEDS ORDERED: SUGAMMADEX SODIUM 500 MG/5 ML VIAL (BRIDION) As Ordered ONE (18:20)
[2023-05-22] MEDS ORDERED: ONDANSETRON 4MG 2ML VIAL As Ordered ONE ×2 (18:21→21:08)
[2023-05-22] MEDS ORDERED: KETOROLAC 60MG 2ML VIAL As Ordered ONE (18:21)
[2023-05-22] MEDS ORDERED: ACETAMINOPHEN 1000MG 100ML IV BAG As Ordered ONE (18:21)
[2023-05-22] MEDS ORDERED: METOCLOPRAMIDE INJ 10MG/2ML VIAL As Ordered ONE (18:21)
[2023-05-22] MEDS ORDERED: PHENYLephrine 500MCG 5ML (100MCG/ML) SYRINGE As Ordered ONE ×2 (18:39→19:14)
[2023-05-22] MEDS ORDERED: HYDROMORPHONE HCL 0.5 MG/ 0.5 ML SYRINGE IV PRN (21:15)
[2023-05-22] MEDS ORDERED: oxyCODONE 5MG TAB PO PRN (21:15)
[2023-05-22] MEDS ORDERED: ONDANSETRON 4MG 2ML VIAL IV PRN (21:15)
[2023-05-22] MEDS ORDERED: MEPERIDINE 25 MG/ML 1ML VIAL IV PRN (21:15)
[2023-05-22] MEDS ORDERED: PROMETHAZINE 25MG/ML 1ML VIAL IV PRN (21:20)
[2023-05-22 23:00] VITALS: BP 142/82; TEMP 97.4; O2SAT 99
[2023-05-23] MEDS ORDERED: ACET32TAB PO (14:17)
[2023-05-23] MEDS ORDERED: IBUP200T46 PO ×2 (14:17→22:27)
[2023-05-23] MEDS ORDERED: METF-838 PO (22:27)
[2023-05-23] MEDS ORDERED: ACET-907 PO (22:27)
[2023-05-23] MEDS ORDERED: OXYC1CAP PO (22:27)
[2023-05-23] MEDS ORDERED: ASPI-161 PO (22:27)
== END 2023-05-22 23:03 | disposition home or self-care (01) ==
LOC: M SDC 14:08
PROVIDERS: ATTEND Student in an Organized Health Care Education/Training Program
DX: S82.852A Displaced trimalleolar fracture of left lower leg, initial encounter for closed fracture (principal); W19.XXXA Unspecified fall, initial encounter; Y92.89 Other specified places as the place of occurrence of the external cause; Y93.9 Activity, unspecified; Y99.9 Unspecified external cause status; E11.9 Type 2 diabetes mellitus without complications; Z79.84 Long term (current) use of oral hypoglycemic drugs; Z79.899 Other long term (current) drug therapy; Z91.030 Bee allergy status; Z88.0 Allergy status to penicillin
CPT/HCPCS: 27822; 64445; 64447; 76000; C1713; J0131; J0736; J1885; J2250; J2371; J2405; J2550; J2765; J2795; J3010

== ENCOUNTER 2023-05-23 13:59 | Observation (INO) | payer OTHER ==
[~2023-05-23] VITALS: Ht 162.6 cm; Wt 84.5 kg
[~2023-05-23 13:59] MED LIST changes: +OXYC1CAP PO
[2023-05-23] MEDS ORDERED: IBUP200T46 PO ×2 (14:17→22:27)
[2023-05-23] MEDS ORDERED: ACET32TAB PO (14:17)
[2023-05-23] MEDS ORDERED: ONDANSETRON 4MG 2ML VIAL IV ONE (16:25)
[2023-05-23] MEDS ORDERED: MORPHINE 4 MG/ML 1ML VIAL IV ONE (16:25)
[2023-05-23 17:00] LABS: BASO % 0.1 % (0.0-1.0); LYMPH # 1.1 10^3/uL (1.5-5.0); LYMPH % 12.8 % (24.0-44.0); MEAN CORPUSCULAR HEMOGLOBIN 31.3 pg (27.0-33.0); MEAN CORPUSCULAR HGB CONC 33.3 g/dl (32.0-36.5); MONO # 0.6 10^3/uL (0.0-0.8); MONO % 7.2 % (2.0-8.0); NEUTROPHILS # 6.7 10^3/uL (1.5-8.5); NEUTROPHILS % 79.5 % (36.0-66.0); PLATELET COUNT, AUTOMATED 330 10^3/uL (150-450); RED BLOOD COUNT 3.83 10^6/uL (4.00-5.40); WHITE BLOOD COUNT 8.5 10^3/uL (4.0-10.0)
[2023-05-23 17:24] LABS: BLOOD UREA NITROGEN 5 MG/DL (9-23); CALCIUM LEVEL 9.3 MG/DL (8.5-10.1); CARBON DIOXIDE LEVEL 21 MMOL/L (20-31); CHLORIDE LEVEL 102 MMOL/L (98-107); GLOMERULAR FILTRATION RATE > 60.0 (>60); GLUCOSE, FASTING 273 MG/DL (60-100); POTASSIUM SERUM 3.6 MMOL/L (3.5-5.1); SODIUM LEVEL 138 MMOL/L (136-145)
[2023-05-23] MEDS: MORPHINE 4 MG/ML 1ML VIAL IV PRN ×2 (17:47→18:44)
[2023-05-23] MEDS ORDERED: GABAPENTIN 300 MG CAP PO ONE (19:35)
[2023-05-23] MEDS ORDERED: KETOROLAC 30 MG/ML 1ML VIAL IV ONE (20:30)
[2023-05-23] MEDS ORDERED: ONDANSETRON 4MG ORAL DISINTEGRATING TAB PO PRN (21:05)
[2023-05-23] MEDS ORDERED: DEXTROSE 50% 50ML SYRINGE IV PRN (21:05)
[2023-05-23] MEDS ORDERED: GLUCAGON INJ 1MG VIAL SC PRN (21:05)
[2023-05-23] MEDS ORDERED: GLUCOSE 4GM CHEW TABLET PO PRN (21:05)
[2023-05-23] MEDS ORDERED: PERCOCET 5MG/325MG TAB PO PRN (21:05)
[2023-05-23] MEDS: KETOROLAC 30 MG/ML 1ML VIAL IV PRN (21:40)
[2023-05-23] MEDS ORDERED: ASPI-161 PO (22:27)
[2023-05-23] MEDS ORDERED: OXYC1CAP PO (22:27)
[2023-05-23] MEDS ORDERED: ACET-907 PO (22:27)
[2023-05-23] MEDS ORDERED: METF-838 PO (22:27)
[2023-05-23] MEDS ORDERED: HOME MED LIST COMPLETE! XX SCH (22:30)
[2023-05-23 23:58] VITALS: BP 132/76; TEMP 98; O2SAT 97
[2023-05-24] MEDS: ACETAMINOPHEN TAB 650MG DOSE (2X325MG) PO PRN (02:34)
[2023-05-24 06:16] VITALS: BP 118/67; TEMP 96.9; O2SAT 97
[2023-05-24] MEDS: KETOROLAC 30 MG/ML 1ML VIAL IV PRN (06:38)
[2023-05-24] MEDS ORDERED: ACETAMINOPHEN 325 MG TAB PO PRN (06:45)
[2023-05-24] MEDS: PERCOCET 5MG/325MG TAB PO SCH ×3 (07:18→18:10)
[2023-05-24] MEDS: INSULIN LISPRO (NovoLOG) PER UNIT SC SCH ×3 (07:27→20:27)
[2023-05-24 07:39] LABS: BASO % 0.3 % (0.0-1.0); EOS # 0.1 10^3/uL (0.0-0.5); EOS % 1.1 % (0.0-3.0); HEMATOCRIT 32.5 % (36.0-47.0); HEMOGLOBIN 10.8 g/dl (12.0-15.5); LYMPH # 2.2 10^3/uL (1.5-5.0); LYMPH % 34.3 % (24.0-44.0); MEAN CORPUSCULAR HEMOGLOBIN 31.7 pg (27.0-33.0); MEAN CORPUSCULAR HGB CONC 33.2 g/dl (32.0-36.5); MEAN CORPUSCULAR VOLUME 95.3 fl (80.0-96.0); MONO # 0.7 10^3/uL (0.0-0.8); MONO % 10.3 % (2.0-8.0); NEUTROPHILS # 3.4 10^3/uL (1.5-8.5); NEUTROPHILS % 53.7 % (36.0-66.0); PLATELET COUNT, AUTOMATED 304 10^3/uL (150-450); RED BLOOD COUNT 3.41 10^6/uL (4.00-5.40); WHITE BLOOD COUNT 6.3 10^3/uL (4.0-10.0)
[2023-05-24] MEDS: NS 1,000 ML IV SCH ×2 (07:48→18:00)
[2023-05-24 08:00] VITALS: BP 130/79; TEMP 97.7; O2SAT 96
[2023-05-24 08:00] LABS: BLOOD UREA NITROGEN 6 MG/DL (9-23); CALCIUM LEVEL 8.9 MG/DL (8.5-10.1); CARBON DIOXIDE LEVEL 22 MMOL/L (20-31); CHLORIDE LEVEL 103 MMOL/L (98-107); CREATININE FOR GFR 0.49 MG/DL (0.55-1.30); GLOMERULAR FILTRATION RATE > 60.0 (>60); GLUCOSE, FASTING 258 MG/DL (60-100); POTASSIUM SERUM 3.5 MMOL/L (3.5-5.1); SODIUM LEVEL 136 MMOL/L (136-145)
[2023-05-24 08:09] LABS: HEMOGLOBIN A1c 10.1 % (4.0-6.0)
[2023-05-24 08:19] LABS: CHOLESTEROL RISK RATIO 2.52 (<5); HDL CHOLESTEROL 51.4 MG/DL (>40); LDL CHOLESTEROL 60.2 MG/DL (<100); NON-HDL-C 78.6 MG/DL
[2023-05-24] MEDS: KETOROLAC 30 MG/ML 1ML VIAL IV SCH ×2 (12:28→18:10)
[2023-05-24 16:00] VITALS: BP 131/70; TEMP 98.3; O2SAT 96
[2023-05-24] MEDS ORDERED: DEXTROSE 50% 50ML SYRINGE IV PRN (17:25)
[2023-05-24] MEDS ORDERED: GLUCOSE 4GM CHEW TABLET PO PRN (17:25)
[2023-05-24] MEDS ORDERED: INSULIN LISPRO (NovoLOG) PER UNIT SC SCH (17:30)
[2023-05-24] MEDS ORDERED: INSULIN LISPRO (NovoLOG) PER UNIT SC ONE (17:45)
[2023-05-24] MEDS: LEVEMIR (INSULIN DETEMIR) 1 UNITS/0.01ML SC SCH (18:11)
[2023-05-24 20:00] VITALS: BP 128/74; TEMP 98.4; O2SAT 95
[2023-05-24] MEDS: ROSUVASTATIN 10 MG TAB (CRESTOR) PO SCH (20:38)
[2023-05-24] MEDS: ASPIRIN 81MG ENTERIC TABLET PO SCH (20:38)
[2023-05-24] MEDS ORDERED: LEVEMIR (INSULIN DETEMIR) 1 UNITS/0.01ML SC SCH (21:00)
[2023-05-25] VITALS (7 sets, daily range): BP systolic 128–155; BP diastolic 74–90; TEMP 97.8–99; O2SAT 96–97
[2023-05-25] MEDS: KETOROLAC 30 MG/ML 1ML VIAL IV SCH ×2 (00:10→06:41)
[2023-05-25] MEDS: PERCOCET 5MG/325MG TAB PO SCH ×2 (00:11→06:41)
[2023-05-25] MEDS ORDERED: PERCOCET 5MG/325MG TAB PO PRN (07:50)
[2023-05-25] MEDS ORDERED: PERCOCET 5MG/325MG TAB PO ONE (07:50)
[2023-05-25] MEDS ORDERED: MOM 30ML SUSPENSION UDC PO PRN (08:45)
[2023-05-25] MEDS ORDERED: SENOKOT S TAB PO PRN (08:45)
[2023-05-25] MEDS ORDERED: oxyCODONE 5MG TAB PO PRN (08:45)
[2023-05-25] MEDS ORDERED: MIRALAX *UNIT DOSE* 17GM PACKET PO PRN (08:45)
[2023-05-25] MEDS: LEVEMIR (INSULIN DETEMIR) 1 UNITS/0.01ML SC SCH ×2 (09:07→20:57)
[2023-05-25] MEDS: INSULIN LISPRO (NovoLOG) PER UNIT SC SCH ×4 (09:07→20:57)
[2023-05-25] MEDS: IBUPROFEN 400MG TAB PO SCH ×3 (09:08→18:33)
[2023-05-25] MEDS: ACETAMINOPHEN TAB 650MG DOSE (2X325MG) PO PRN (15:43)
[2023-05-25] MEDS: oxyCODONE 5MG TAB PO PRN ×2 (18:33→23:47)
[2023-05-25] MEDS: ASPIRIN 81MG ENTERIC TABLET PO SCH (20:57)
[2023-05-25] MEDS: ROSUVASTATIN 10 MG TAB (CRESTOR) PO SCH (20:58)
[2023-05-25] MEDS ORDERED: ACETAMINOPHEN 500 MG TAB PO SCH (21:00)
[2023-05-26] VITALS: BP 154/74; TEMP 97.2; O2SAT 96
[2023-05-26] MEDS: oxyCODONE 5MG TAB PO PRN (04:15)
[2023-05-26] MEDS ORDERED: ACETAMINOPHEN 500 MG TAB PO SCH (06:00)
[2023-05-26] MEDS ORDERED: IBUPROFEN 100MG 5ML ORAL SUSP UDC PO SCH (08:00)
[2023-05-26] MEDS ORDERED: MORPHINE 30 MG TAB **MSIR PO PRN (08:15)
[2023-05-26] MEDS ORDERED: HYDROMORPHONE HCL 0.5 MG/ 0.5 ML SYRINGE IV ONE (08:15)
[2023-05-26] MEDS ORDERED: NALOXONE INJ 0.4MG/1ML VIAL IV PRN (08:15)
[2023-05-26] MEDS ORDERED: HYDROMORPHONE HCL 0.5 MG/ 0.5 ML SYRINGE IV PRN (08:40)
[2023-05-26] MEDS ORDERED: LEVEMIR (INSULIN DETEMIR) 1 UNITS/0.01ML SC SCH (09:00)
[2023-05-26] MEDS ORDERED: KETOROLAC 30 MG/ML 1ML VIAL IV SCH (09:00)
[2023-05-26] MEDS ORDERED: INSULIN LISPRO (NovoLOG) PER UNIT SC SCH ×2 (12:00→21:00)
[2023-05-26] MEDS ORDERED: MORPHINE 30 MG TAB **MSIR PO SCH (13:00)
== END 2023-05-26 10:02 | disposition left against medical advice (07) ==
LOC: M ED 13:59 → EDBD 13:59 → EEVIPCON 21:02 → M ED INP 21:02 → M MS4PR 23:53 → M PED 05-24 06:40
PROVIDERS: ADMIT Internal Medicine; ATTEND Internal Medicine
DX: G89.18 Other acute postprocedural pain (principal); S82.852A Displaced trimalleolar fracture of left lower leg, initial encounter for closed fracture; W19.XXXA Unspecified fall, initial encounter; Z91.199 Patient's noncompliance with other medical treatment and regimen due to unspecified reason; E11.65 Type 2 diabetes mellitus with hyperglycemia; E78.00 Pure hypercholesterolemia, unspecified; Z79.899 Other long term (current) drug therapy; Z79.84 Long term (current) use of oral hypoglycemic drugs; Z88.0 Allergy status to penicillin; Z91.030 Bee allergy status
CPT/HCPCS: 36415; 73700; 80048; 80061; 83036; 85025; 87635; 87641; 93971; 96374; 96375; 96376; 97116; 97161; 99284; J1815; J1885; J2405

== ENCOUNTER → 2023-05-30 | Outpatient (CLI) | payer OTHER ==
[~2023-05-30] MED LIST changes: +ACET-907 PO; +ACET32TAB PO; +ASPI-161 PO; +IBUP200T46 PO; +METF-838 PO
== END ==
LOC: M SOG 09:15
PROVIDERS: ATTEND Physician Assistant
DX: S82.852D Displaced trimalleolar fracture of left lower leg, subsequent encounter for closed fracture with routine healing (principal)

== ENCOUNTER → 2023-06-07 | Outpatient (CLI) | payer OTHER | LOC: M SOG 08:03 | PROVIDERS: ATTEND Physician Assistant | DX: S82.852D Displaced trimalleolar fracture of left lower leg, subsequent encounter for closed fracture with routine healing (principal) ==

== ENCOUNTER → 2023-06-20 | Outpatient (CLI) | payer OTHER ==
[~2023-06-20] MED LIST changes: +GABA-282 PO
== END ==
LOC: M SOG 08:53
PROVIDERS: ATTEND Student in an Organized Health Care Education/Training Program
DX: S82.852D Displaced trimalleolar fracture of left lower leg, subsequent encounter for closed fracture with routine healing (principal)

== ENCOUNTER 2024-02-17 10:10 | Day surgery (SDC) | payer OTHER ==
[~2024-02-17] VITALS: Ht 162.6 cm; Wt 81.6 kg
[2024-02-17] VITALS (7 sets, daily range): BP systolic 116–123; BP diastolic 69–75; TEMP 96.8–97.9; O2SAT 94–96
[~2024-02-17 10:10] MED LIST changes: -ASPI-161 PO; +ASPI-615 PO; +CHOL1250 PO; +INSU100V19 SC; -INSURSD SC; +NEUR600T PO; -OXYC1CAP PO; +OXYC1CAP2 PO; +ROSU5TAB40 PO; -ROSU5TAB5 PO
[2024-02-17 12:11] LABS: BASO % 0.2 % (0.0-1.0); HEMOGLOBIN 13.9 g/dl (12.0-15.5); LYMPH # 1.7 10^3/uL (1.5-5.0); LYMPH % 12.4 % (24.0-44.0); MEAN CORPUSCULAR HEMOGLOBIN 31.6 pg (27.0-33.0); MEAN CORPUSCULAR HGB CONC 33.9 g/dl (32.0-36.5); MEAN CORPUSCULAR VOLUME 93.2 fl (80.0-96.0); MONO # 0.8 10^3/uL (0.0-0.8); MONO % 5.7 % (2.0-8.0); NEUTROPHILS # 11.1 10^3/uL (1.5-8.5); NEUTROPHILS % 81.3 % (36.0-66.0); PLATELET COUNT, AUTOMATED 316 10^3/uL (150-450); WHITE BLOOD COUNT 13.7 10^3/uL (4.0-10.0)
[2024-02-17 12:34] LABS: LIPASE 28 U/L (12-53)
[2024-02-17 12:36] LABS: ALKALINE PHOSPHATASE 190 U/L (46-116); ALT/SGPT 14 U/L (7.0-40); AST/SGOT < 8 U/L (<34); BILIRUBIN,DIRECT 0.4 MG/DL (<0.4); BILIRUBIN,TOTAL 1.2 MG/DL (0.3-1.2); TOTAL PROTEIN 7.6 G/DL (5.7-8.2)
[2024-02-17] MEDS ORDERED: ISOVUE-370 76% 100ML VIAL As Ordered ONE (13:06)
[2024-02-17] MEDS: ONDANSETRON 4MG 2ML VIAL IV ONE (13:08)
[2024-02-17] MEDS: NS 1,000 ML IV ONE (13:08)
[2024-02-17] MEDS: MORPHINE 4 MG/ML 1ML VIAL IV ONE (13:08)
[2024-02-17] MEDS: cefTRIAXone SOD 1 GM in D5W MINI-BAG PLUS 50 ML IV ONE (14:20)
[2024-02-17] MEDS ORDERED: HOME MED LIST COMPLETE! XX SCH (15:00)
[2024-02-17] MEDS: metroNIDAZOLE 500 MG in IV 1 EA IV ONE (15:09)
[2024-02-17] MEDS ORDERED: DEXTROSE 50% 50ML SYRINGE IV PRN ×3 (16:00→18:25)
[2024-02-17] MEDS ORDERED: GLUCAGON INJ 1MG VIAL SC PRN ×3 (16:00→18:25)
[2024-02-17] MEDS ORDERED: GLUCOSE 4 GM CHEW PO PRN ×3 (16:00→18:25)
[2024-02-17] MEDS: fentaNYL 100 MCG/2 ML INJECTION IV SCH (16:00)
[2024-02-17] MEDS ORDERED: fentaNYL 100 MCG/2 ML INJECTION As Ordered ONE (16:02)
[2024-02-17] MEDS ORDERED: ROCURONIUM BROMIDE 50MG/5ML VIAL As Ordered ONE (16:06)
[2024-02-17] MEDS ORDERED: propofoL 200 MG/20 ML VIAL As Ordered ONE (16:06)
[2024-02-17] MEDS ORDERED: LIDOCAINE 2% 100MG/5ML SDV (FOR ANES.) As Ordered ONE (16:08)
[2024-02-17] MEDS: INSULIN LISPRO (NovoLOG) PER UNIT SC PRN (16:11)
[2024-02-17] MEDS ORDERED: PHENYLephrine 500MCG 5ML (100MCG/ML) SYRINGE As Ordered ONE (16:31)
[2024-02-17] MEDS ORDERED: METOCLOPRAMIDE INJ 10MG/2ML VIAL As Ordered ONE (16:34)
[2024-02-17] MEDS ORDERED: KETOROLAC 60MG 2ML VIAL As Ordered ONE (16:34)
[2024-02-17] MEDS ORDERED: oxyCODONE 5MG TAB PO PRN (16:40)
[2024-02-17] MEDS ORDERED: HYDROMORPHONE HCL 0.5 MG/ 0.5 ML SYRINGE IV PRN (16:40)
[2024-02-17] MEDS: LR 1,000 ML IV SCH (16:40)
[2024-02-17] MEDS ORDERED: INSULIN LISPRO (NovoLOG) PER UNIT SC PRN (16:40)
[2024-02-17] MEDS ORDERED: ONDANSETRON 4MG 2ML VIAL IV PRN (16:40)
[2024-02-17] MEDS ORDERED: PROMETHAZINE 25MG/ML 1ML VIAL IV PRN (16:40)
[2024-02-17] MEDS ORDERED: fentaNYL 100 MCG/2 ML INJECTION IV PRN (16:40)
[2024-02-17] MEDS ORDERED: ACETAMINOPHEN 1000MG 100ML IV BAG As Ordered ONE (16:43)
[2024-02-17] MEDS ORDERED: ONDANSETRON 4MG 2ML VIAL As Ordered ONE (16:47)
[2024-02-17] MEDS ORDERED: SUGAMMADEX SODIUM 500 MG/5 ML VIAL (BRIDION) As Ordered ONE (17:05)
[2024-02-17] MEDS ORDERED: MORPHINE 2 MG/ML 1ML VIAL IV PRN ×2 (17:15)
[2024-02-17] MEDS ORDERED: MORPHINE 4 MG/ML 1ML VIAL IV PRN ×2 (17:15→17:30)
[2024-02-17] MEDS: NS 1,000 ML IV SCH (18:11)
[2024-02-17] MEDS: INSULIN LISPRO (NovoLOG) PER UNIT SC SCH ×2 (18:43→20:59)
[2024-02-17] MEDS: KETOROLAC 30 MG/ML 1ML VIAL IV SCH (22:05)
[2024-02-18] VITALS (7 sets, daily range): BP systolic 117–132; BP diastolic 70–88; TEMP 97–98.1; O2SAT 94–99
[2024-02-18] MEDS: PANTOPRAZOLE 40MG VIAL IV SCH (08:14)
[2024-02-18] MEDS ORDERED: NORCO, ANEXSIA 5/325MG TABLET (HYDROcodone/ACETAMINOPHEN) PO PRN (13:20)
[2024-02-18] MEDS: cefTRIAXone SOD 1 GM in D5W MINI-BAG PLUS 50 ML IV SCH (16:11)
[2024-02-18] MEDS: NORCO, ANEXSIA 5/325MG TABLET (HYDROcodone/ACETAMINOPHEN) PO PRN (20:24)
[2024-02-18] MEDS: SIMETHICONE 80MG CHEW TAB PO PRN (22:58)
[2024-02-19 02:00] VITALS: BP 118/71; TEMP 97.3; O2SAT 96
[2024-02-19 06:00] VITALS: BP 130/83; TEMP 97.5; O2SAT 95
[2024-02-19 10:00] VITALS: BP 115/66; TEMP 97.2; O2SAT 99
== END 2024-02-19 11:32 | disposition home or self-care (01) ==
LOC: M ED 10:10 → M SDC 15:00 → M MSPAV 18:00 → M SDC 02-19 11:32
PROVIDERS: ATTEND Surgery
DX: K35.891 Other acute appendicitis without perforation, with gangrene (principal); E11.9 Type 2 diabetes mellitus without complications; G40.909 Epilepsy, unspecified, not intractable, without status epilepticus; E66.9 Obesity, unspecified; Z79.84 Long term (current) use of oral hypoglycemic drugs; Z88.0 Allergy status to penicillin
CPT/HCPCS: 44970; 80047; 80076; 83690; 84702; 85025; 88304; 96361; 96365; 96375; 96376; 99284; C9113; C9290; J0131; J0665; J0696; J1100; J1836; J1885; J2371; J2405; J3010; Q9967

== ENCOUNTER → 2024-12-30 | Outpatient (REF) ==
[~2024-12-30] MED LIST changes: +GABA-1172 PO; -GABA-282 PO; +METF-1156 PO; -METF-817 PO; -ROSU5TAB40 PO; +ROSU5TAB49 PO
== END ==
LOC: M LAB 11:19
PROVIDERS: ATTEND Family Medicine
DX: Z00.00 Encounter for general adult medical examination without abnormal findings (principal)

== ENCOUNTER 2025-02-14 20:38 | Emergency (ER) | payer OTHER ==
[~2025-02-14] VITALS: Ht 162.6 cm; Wt 77.9 kg
[~2025-02-14 20:38] MED LIST changes: -HYDR28CR33 TOP; +HYDR28CR52 TOP
[2025-02-14 21:09] LABS: KETONE, URINE AUTO RFX NEGATIVE (NEGATIVE); LEUKOCYTE ESTERASE UR AUTO RFX NEGATIVE (NEGATIVE); MUCUS, URINE RFX SMALL (NEGATIVE); NITRITE, URINE AUTO RFX NEGATIVE (NEGATIVE); RBC, URINE AUTO RFX 0 /HPF (0-3); SQUAM EPITHELIAL CELL UR AURFX 2 /HPF (0-6); WBC, URINE AUTO RFX 1 /HPF (0-3)
[2025-02-14] MEDS: KETOROLAC 30 MG/ML 1ML VIAL IV ONE (21:23)
[2025-02-14] MEDS: ACETAMINOPHEN *IV* 1,000 MG in IV 1 EA IV ONE (21:23)
[2025-02-14] MEDS: NS (Normal Saline) 0.9% 1,000 ML IV ONE (21:24)
[2025-02-14] MEDS: ONDANSETRON 4MG 2ML VIAL IV ONE (21:24)
[2025-02-14 21:37] LABS: BASO % 0.4 % (0.0-1.0); EOS # 0.1 10^3/uL (0.0-0.5); EOS % 0.6 % (0.0-3.0); HEMOGLOBIN 11.5 g/dl (12.0-15.5); LYMPH # 2.6 10^3/uL (1.5-5.0); MEAN CORPUSCULAR HEMOGLOBIN 31.8 pg (27.0-33.0); MEAN CORPUSCULAR HGB CONC 34.8 g/dl (32.0-36.5); MEAN CORPUSCULAR VOLUME 91.2 fl (80.0-96.0); MONO # 0.4 10^3/uL (0.0-0.8); MONO % 5.1 % (2.0-8.0); NEUTROPHILS # 5.2 10^3/uL (1.5-8.5); NEUTROPHILS % 62.7 % (36.0-66.0); PLATELET COUNT, AUTOMATED 299 10^3/uL (150-450); RED BLOOD COUNT 3.62 10^6/uL (4.00-5.40); WHITE BLOOD COUNT 8.3 10^3/uL (4.0-10.0)
[2025-02-14 21:46] LABS: BILIRUBIN,DIRECT 0.2 MG/DL (<0.4); BILIRUBIN,TOTAL 0.5 MG/DL (0.3-1.2)
[2025-02-14] MEDS ORDERED: ISOVUE-370 76% 100ML VIAL As Ordered ONE (21:52)
[2025-02-14] MEDS ORDERED: VALA1TAB5 PO (23:30)
[2025-02-14] MEDS ORDERED: GABA-1171 PO (23:30)
[2025-02-14] MEDS ORDERED: PRED20TA PO (23:30)
[2025-02-14 23:42] VITALS: BP 128/75; TEMP 98.5; O2SAT 100
[2025-02-14] MEDS ORDERED: ONDA-282 PO (23:49)
== END 2025-02-14 23:48 | disposition home or self-care (01) ==
LOC: M ED 20:38
DX: R10.9 Unspecified abdominal pain (principal); E11.9 Type 2 diabetes mellitus without complications; Z88.0 Allergy status to penicillin; Z91.030 Bee allergy status; Z91.09 Other allergy status, other than to drugs and biological substances; Z79.1 Long term (current) use of non-steroidal anti-inflammatories (NSAID); Z79.2 Long term (current) use of antibiotics; Z79.84 Long term (current) use of oral hypoglycemic drugs; Z79.899 Other long term (current) drug therapy
CPT/HCPCS: 74177; 80047; 80076; 81001; 83690; 84702; 85025; 96361; 96374; 96375; 99284; J0131; J1885; J2405; Q9967